=== PATIENT | female | born 1965 | race Caucasian/White ===

== ENCOUNTER 2022-09-09 05:48 | Outpatient (CLI) | payer OTHER, BC, SELFPAY | END 2022-09-09 05:49 | disposition home or self-care (01) | LOC: AMB 11:59 | PROVIDERS: Visit Provider Family Medicine | DX: R07.89 Other chest pain (principal); R06.09 Other forms of dyspnea | CPT/HCPCS: A0425; A0427 ==

== ENCOUNTER 2023-11-13 19:34 | Emergency (ER) | payer BC, SELFPAY ==
[2023-11-13 19:37] VITALS: BP 148/82; PULSE 111; RESP 24; TEMP 37.2; O2SAT 92; BMI 22.8
--- NOTE | 2023-11-13 19:50 | ED_ITS ---
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 with any exertion sats drop to low 80s and HR raises to 150s. concerned she may have an infection causing these symptoms. denies known fevers 58-year-old woman presenting to the emergency department with concern of shortness of breath. Her last night or during the night when she woke feeling like she had a band around her chest. Walking about the house, she went to get her inhaler noting oxygen saturations at 82%. Evidently initiated prednisone yesterday along with has been doing DuoNebs. Significant exercise intolerance with suppression of oxygen levels and tachycardia. She recalls in that 1st instance how heart rate went up and she became rather diaphoretic. She has not had a fever. No cough. Was noting herself to be wheezy should and shortly before arrival in the ER had used a neb. feels like she is doing okay at rest. Mentions also that both legs were really achy last night. Has not had swelling in particular. She does smoke cigarettes. 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 Following this surgery did develop an infection and sounds to have been pulmonary and since that time has needed various nebulizer treatments and inhalers. Initially she denies lung disease otherwise other than saying that she is prone to producing a lot of mucus in her lungs and no one knows exactly why. Does admit later that was thought to have a little bit of COPD. Related Data Home Medications Medication Instructions Recorded Confirmed albuterol sulfate 90 mcg/actuation 1 - 2 puff inhalation Q4H PRN 11/13/23 11/13/23 aerosol inhaler (Ventolin HFA) dyspnea azithromycin 250 mg tablet mg PO 11/13/23 fluticasone furoate 200 1 ea inhalation DAILY 11/13/23 11/13/23 mcg-vilanterol 25 mcg/dose inhalation powder (Breo Ellipta) hydrochlorothiazide 25 mg tablet 25 mg PO DAILY 11/13/23 11/13/23 ipratropium 0.5 mg-albuterol 3 mg 3 ml inhalation Q6H PRN cough 11/13/23 11/13/23 (2.5 mg base)/3 mL nebulization soln lansoprazole 30 mg capsule,delayed 30 mg PO BID 11/13/23 11/13/23 release methocarbamol 750 mg tablet 750 mg PO 3XD 11/13/23 11/13/23 prednisone 10 mg tablet 40 mg PO DAILY 11/13/23 11/13/23 tiotropium bromide 2.5 2 puff inhalation DAILY 11/13/23 11/13/23 mcg/actuation mist for inhalation (Spiriva Respimat) Previous Rx's Medication Instructions Recorded doxycycline monohydrate 100 mg 100 mg PO BID 9 days #18 caps 11/13/23 capsule Allergies Allergy/AdvReac Type Severity Reaction Status Date / Time Sulfa (Sulfonamide Allergy Verified 11/13/23 19:42 Antibiotics) Review of Systems Status of ROS: Reports: 6 or more systems reviewed and unremarkable except as noted in History and below [facility] Social History Smoking Status: Current every day smoker What tobacco products do you use: cigarettes Do you use any of these nicotine containing products: None Second hand tobacco smoke exposure: No How often do you have a drink containing alcohol: monthly or less AUDIT-C Alcohol total score: 1 Non-prescribed substance use: denies use service: No Exam Narrative: Exam Narrative: Pleasant. Talkative. Oropharynx is moist and hyperemic. Missing some dentition. No stridor. Does have breath sounds throughout and across the upper lung field sounds vaguely stridorous/harsh inhalations. No wheeze. There is no supraclavicular crepitus. Heart is in a tachycardic and regular rhythm. She is mildly labored at least in her inhalations. Does not seem to affect her talking. Extremities are well perfused and without edema. Const: Vital Signs, click to edit/add: Vital Signs - 24 hr 11/13/23 19:37 Temperature 98.9 F Pulse Rate [Pulse Oximeter] 111 H Respiratory Rate 24 Blood Pressure [Ri ght Upper Arm] 148/82 H Pulse Oximetry 92 Oxygen Delivery Me thod Room Air Documenting provider has reviewed patient's vital signs: yes Course Vital Signs Vital signs: Initial Vital Signs Temperature 98.9 F 11/13/23 19:37 Temperature Source Temporal Artery Scan 11/13/23 19:37 Pulse Rate 111 H 11/13/23 19:37 Respiratory Rate 24 11/13/23 19:37 Blood Pressure 148/82 H 11/13/23 19:37 Blood Pressure Mean 104 11/13/23 19:37 Blood Pressure Position Sitting 11/13/23 19:37 Pulse Oximetry 92 11/13/23 19:37 Oxygen Delivery Method Room Air 11/13/23 19:37 Vital Signs Temperature 98.9 F 11/13/23 19:37 Pulse Rate 111 H 11/13/23 19:37 Respiratory Rate 24 11/13/23 19:37 Blood Pressure 148/82 H 11/13/23 19:37 Pulse Oximetry 92 11/13/23 19:37 Oxygen Delivery Method Room Air 11/13/23 19:37 Temperature 98.9 F 11/13/23 19:37 Pulse Rate 111 H 11/13/23 19:37 Respiratory Rate 24 11/13/23 19:37 Blood Pressure 148/82 H 11/13/23 19:37 Pulse Oximetry 92 11/13/23 19:37 Oxygen Delivery Method Room Air 11/13/23 19:37 Medical Decision Making MDM Narrative Medical decision making narrative: I would suspect there is more COPD here than initially acknowledged. Would screen though for pulmonary embolus, pneumothorax particularly in light of history of surgery though breath sounds throughout, pneumonia. I do not think this is cardiac in origin but will check labs in this regard too. Monitor for tachyarrhythmia. Chest x-ray reviewed by me without pneumothorax, pulmonary effusion or infiltrate. Labs are reassuring and with normal D-dimer. Did request albuterol nebulization. My hope was to mobilize some secretions/mucous plugging. She noted marked improvement on reassessment though still expressing concern about potential infection and need for antibiotics. Thinks that something must be wrong with their old nebulizer at home as prior nebs had not resulted in symptomatic improvement like this. Maintaining oxygenation at 94-95% on room air which she notes to be approximately baseline. Tachycardia improved to the 80s. See patient discharge plan further discussion Lab Data Lab results reviewed: Yes I reviewed the patient's lab results Labs: Lab Results 11/13/23 11/13/23 11/13/23 Range/Units 19:50 20:30 20:30 WBC 9.22 (4.50-11.00) K/uL RBC 4.12 (4.00-5.20) m/uL Hgb 14.0 (12.0-16.0) gm/dL Hct 41.8 (33.0-51.0) % MCV 102 H (80-100) fL MCH 34 (26-34) pg MCHC 34 (32-36) gm/dL RDW Coeff of Breonna 12.9 (11.5-15.5) % Plt Count 247 (140-440) K/uL Neut % (Auto) 78.3 H (42.0-72.0) % Lymph % (Auto) 13.8 L (20-44) % [place] % (Auto) 7.0 (0.0-11.0) % Eos % (Auto) 0.5 (0.0-7.0) % Baso % (Auto) 0.3 (0.0-3.0) % Neut # (Auto) 7.20 H (1.7-7.0) K/uL Lymph # (Auto) 1.30 (0.90-2.90) K/uL [place] # (Auto) 0.60 (0.00-0.90) K/UL Eos # (Auto) 0.05 (0.00-0.50) K/uL Baso # (Auto) 0.03 (0.00-0.30) K/uL Abs Immat Gran (auto) 0.01 (0.00-0.30) K/uL Imm/Tot Granulo (auto) 0.1 % D-Dimer Quant (PE/DVT) 0.43 (0.00-0.50) ug/ml Sodium 141 (135-149) mmol/L Potassium 3.7 (3.6-5.1) mmol/L Chloride 108 (96-114) mmol/L Carbon Dioxide 28 (20-32) mmol/L Anion Gap 5 L (7-15) mEq/L BUN 27 (7-30) mg/dL Creatinine 0.9 (0.5-1.5) mg/dL Estimated Creat Clear 68.73 Estimated GFR 74 ml/min Glucose 127 H (60-115) mg/dL Calcium 9.7 (8.4-10.6) mg/dL Magnesium 1.6 Cancelled (1.5-2.6) mg/dL Total Bilirubin 0.2 (0.1-1.5) mg/dL Direct Bilirubin (0.0-0.5) mg/dL AST (12-35) U/L ALT (4-35) U/L Alkaline Phosphatase (40-150) U/L Troponin I (0.01-0.04) ng/mL C-Reactive Protein (0.5-1.0) mg/dL NT-Pro-B Natriuret Pep pg/mL Total Protein (6.0-8.3) g/dL Albumin (3.3-5.0) g/dL SARS-CoV-2 (PCR) Negative SARS-CoV-2 (Negative) Influenza Type A (PCR) Negative PCR FLU A (Negative) Influenza Type B (PCR) Negative PCR FLU B (Negative) RSV (PCR) Negative PCR RSV (Negative) POC Troponin I (0.01-0.04) ng/ml 11/13/23 11/13/23 11/13/23 Range/Units 20:30 20:30 20:30 WBC (4.50-11.00) K/uL RBC (4.00-5.20) m/uL Hgb (12.0-16.0) gm/dL Hct (33.0-51.0) % MCV (80-100) fL MCH (26-34) pg MCHC (32-36) gm/dL RDW Coeff of Breonna (11.5-15.5) % Plt Count (140-440) K/uL Neut % (Auto) (42.0-72.0) % Lymph % (Auto) (20-44) % [place] % (Auto) (0.0-11.0) % Eos % (Auto) (0.0-7.0) % Baso % (Auto) (0.0-3.0) % Neut # (Auto) (1.7-7.0) K/uL Lymph # (Auto) (0.90-2.90) K/uL [place] # (Auto) (0.00-0.90) K/UL Eos # (Auto) (0.00-0.50) K/uL Baso # (Auto) (0.00-0.30) K/uL Abs Immat Gran (auto) (0.00-0.30) K/uL Imm/Tot Granulo (auto) % D-Dimer Quant (PE/DVT) (0.00-0.50) ug/ml Sodium (135-149) mmol/L Potassium (3.6-5.1) mmol/L Chloride (96-114) mmol/L Carbon Dioxide (20-32) mmol/L Anion Gap (7-15) mEq/L BUN (7-30) mg/dL Creatinine (0.5-1.5) mg/dL Estimated Creat Clear Estimated GFR ml/min Glucose (60-115) mg/dL Calcium (8.4-10.6) mg/dL Magnesium (1.5-2.6) mg/dL Total Bilirubin Cancelled (0.1-1.5) mg/dL Direct Bilirubin 0.2 Cancelled (0.0-0.5) mg/dL AST 19 Cancelled (12-35) U/L ALT 13 (4-35) U/L Alkaline Phosphatase (40-150) U/L Troponin I (0.01-0.04) ng/mL C-Reactive Protein (0.5-1.0) mg/dL NT-Pro-B Natriuret Pep pg/mL Total Protein (6.0-8.3) g/dL Albumin (3.3-5.0) g/dL SARS-CoV-2 (PCR) (Negative) Influenza Type A (PCR) (Negative) Influenza Type B (PCR) (Negative) RSV (PCR) (Negative) POC Troponin I (0.01-0.04) ng/ml 11/13/23 11/13/23 11/13/23 Range/Units 20:30 20:30 20:30 WBC (4.50-11.00) K/uL RBC (4.00-5.20) m/uL Hgb (12.0-16.0) gm/dL Hct (33.0-51.0) % MCV (80-100) fL MCH (26-34) pg MCHC (32-36) gm/dL RDW Coeff of Breonna (11.5-15.5) % Plt Count (140-440) K/uL Neut % (Auto) (42.0-72.0) % Lymph % (Auto) (20-44) % [place] % (Auto) (0.0-11.0) % Eos % (Auto) (0.0-7.0) % Baso % (Auto) (0.0-3.0) % Neut # (Auto) (1.7-7.0) K/uL Lymph # (Auto) (0.90-2.90) K/uL [place] # (Auto) (0.00-0.90) K/UL Eos # (Auto) (0.00-0.50) K/uL Baso # (Auto) (0.00-0.30) K/uL Abs Immat Gran (auto) (0.00-0.30) K/uL Imm/Tot Granulo (auto) % D-Dimer Quant (PE/DVT) (0.00-0.50) ug/ml Sodium (135-149) mmol/L Potassium (3.6-5.1) mmol/L Chloride (96-114) mmol/L Carbon Dioxide (20-32) mmol/L Anion Gap (7-15) mEq/L BUN (7-30) mg/dL Creatinine (0.5-1.5) mg/dL Estimated Creat Clear Estimated GFR ml/min Glucose (60-115) mg/dL Calcium (8.4-10.6) mg/dL Magnesium (1.5-2.6) mg/dL Total Bilirubin (0.1-1.5) mg/dL Direct Bilirubin (0.0-0.5) mg/dL AST (12-35) U/L ALT Cancelled (4-35) U/L Alkaline Phosphatase 79 Cancelled (40-150) U/L Troponin I < 0.01 L Cancelled (0.01-0.04) ng/mL C-Reactive Protein 0.5 (0.5-1.0) mg/dL NT-Pro-B Natriuret Pep 130 pg/mL Total Protein (6.0-8.3) g/dL Albumin (3.3-5.0) g/dL SARS-CoV-2 (PCR) (Negative) Influenza Type A (PCR) (Negative) Influenza Type B (PCR) (Negative) RSV (PCR) (Negative) POC Troponin I (0.01-0.04) ng/ml 11/13/23 11/13/23 11/13/23 Range/Units 20:30 20:30 20:30 WBC (4.50-11.00) K/uL RBC (4.00-5.20) m/uL Hgb (12.0-16.0) gm/dL Hct (33.0-51.0) % MCV (80-100) fL MCH (26-34) pg MCHC (32-36) gm/dL RDW Coeff of Breonna (11.5-15.5) % Plt Count (140-440) K/uL Neut % (Auto) (42.0-72.0) % Lymph % (Auto) (20-44) % [place] % (Auto) (0.0-11.0) % Eos % (Auto) (0.0-7.0) % Baso % (Auto) (0.0-3.0) % Neut # (Auto) (1.7-7.0) K/uL Lymph # (Auto) (0.90-2.90) K/uL [place] # (Auto) (0.00-0.90) K/UL Eos # (Auto) (0.00-0.50) K/uL Baso # (Auto) (0.00-0.30) K/uL Abs Immat Gran (auto) (0.00-0.30) K/uL Imm/Tot Granulo (auto) % D-Dimer Quant (PE/DVT) (0.00-0.50) ug/ml Sodium (135-149) mmol/L Potassium (3.6-5.1) mmol/L Chloride (96-114) mmol/L Carbon Dioxide (20-32) mmol/L Anion Gap (7-15) mEq/L BUN (7-30) mg/dL Creatinine (0.5-1.5) mg/dL Estimated Creat Clear Estimated GFR ml/min Glucose (60-115) mg/dL Calcium (8.4-10.6) mg/dL Magnesium (1.5-2.6) mg/dL Total Bilirubin (0.1-1.5) mg/dL Direct Bilirubin (0.0-0.5) mg/dL AST (12-35) U/L ALT (4-35) U/L Alkaline Phosphatase (40-150) U/L Troponin I (0.01-0.04) ng/mL C-Reactive Protein (0.5-1.0) mg/dL NT-Pro-B Natriuret Pep Cancelled pg/mL Total Protein 7.5 Cancelled (6.0-8.3) g/dL Albumin 4.4 Cancelled (3.3-5.0) g/dL SARS-CoV-2 (PCR) (Negative) Influenza Type A (PCR) (Negative) Influenza Type B (PCR) (Negative) RSV (PCR) (Negative) POC Troponin I (0.01-0.04) ng/ml 11/13/23 Range/Units 20:45 WBC (4.50-11.00) K/uL RBC (4.00-5.20) m/uL Hgb (12.0-16.0) gm/dL Hct (33.0-51.0) % MCV (80-100) fL MCH (26-34) pg MCHC (32-36) gm/dL RDW Coeff of Breonna (11.5-15.5) % Plt Count (140-440) K/uL Neut % (Auto) (42.0-72.0) % Lymph % (Auto) (20-44) % [place] % (Auto) (0.0-11.0) % Eos % (Auto) (0.0-7.0) % Baso % (Auto) (0.0-3.0) % Neut # (Auto) (1.7-7.0) K/uL Lymph # (Auto) (0.90-2.90) K/uL [place] # (Auto) (0.00-0.90) K/UL Eos # (Auto) (0.00-0.50) K/uL Baso # (Auto) (0.00-0.30) K/uL Abs Immat Gran (auto) (0.00-0.30) K/uL Imm/Tot Granulo (auto) % D-Dimer Quant (PE/DVT) (0.00-0.50) ug/ml Sodium (135-149) mmol/L Potassium (3.6-5.1) mmol/L Chloride (96-114) mmol/L Carbon Dioxide (20-32) mmol/L Anion Gap (7-15) mEq/L BUN (7-30) mg/dL Creatinine (0.5-1.5) mg/dL Estimated Creat Clear Estimated GFR ml/min Glucose (60-115) mg/dL Calcium (8.4-10.6) mg/dL Magnesium (1.5-2.6) mg/dL Total Bilirubin (0.1-1.5) mg/dL Direct Bilirubin (0.0-0.5) mg/dL AST (12-35) U/L ALT (4-35) U/L Alkaline Phosphatase (40-150) U/L Troponin I (0.01-0.04) ng/mL C-Reactive Protein (0.5-1.0) mg/dL NT-Pro-B Natriuret Pep pg/mL Total Protein (6.0-8.3) g/dL Albumin (3.3-5.0) g/dL SARS-CoV-2 (PCR) (Negative) Influenza Type A (PCR) (Negative) Influenza Type B (PCR) (Negative) RSV (PCR) (Negative) POC Troponin I 0.00 L (0.01-0.04) ng/ml ECG Data Attestation: I personally reviewed and interpreted this ECG as follows: (Sinus tachycardia at a rate of 102. early transition) Discharge Plan Discharge Clinical Impression: COPD exacerbation Patient Disposition: Home w/ Parent or Adult Condition: Improved Additional Instructions: Given we are telling me, I am wondering if you have been experiencing some mucus plugging. Nebulizations can be helpful to mobilize that fluid. Stay well-hydrated. Take this nebulizer tubing and cup. You might try nebulizing distilled water as well. Over the next 3 days use your DuoNebs scheduled 4 times daily. Can use albuterol nebs or inhalers for breakthrough. Continue with your prednisone as well. If not turning the corner in a couple of days, or develop a fever, I would be seen but per your concern I have called in a prescription of doxycycline that you could fill. Included here also is a prescription for new nebulizer. Prescriptions: New doxycycline monohydrate 100 mg capsule 100 mg PO BID 9 Days Qty: 18 0RF No Action prednisone 10 mg tablet 40 mg PO DAILY ipratropium-albuterol 0.5 mg-3 mg(2.5 mg base)/3 mL solution for nebulization 3 ml INHALATION Q6H PRN (Reason: cough) azithromycin 250 mg tablet PO methocarbamol 750 mg tablet 750 mg PO 3XD lansoprazole 30 mg capsule,delayed release(DR/EC) 30 mg PO BID hydrochlorothiazide 25 mg tablet 25 mg PO DAILY albuterol sulfate [Ventolin HFA] 90 mcg/actuation HFA aerosol inhaler 1 - 2 puff INHALATION Q4H PRN (Reason: dyspnea) fluticasone furoate-vilanterol [Breo Ellipta] 200-25 mcg/dose blister with device 1 ea INHALATION DAILY Spiriva Respimat 2.5 mcg/actuation mist 2 puff INHALATION DAILY Follow Up/Referrals: Provider,Not a Local [Primary Care Provider] - Stand Alone [facility]: [facility]
--- NOTE | 2023-11-13 20:04 | XR_ITS ---
Patient: NUSRAT SANTANA Facility:?[facility] Patient ID:?[id number] Site Patient ID:?[id number] Site :?[id number] Study:?XRay-Chest PCXR-11/13/2023 8:35:39 PM Ordering Physician:SONALI Final Report: INDICATION: CHEST PRESSURE, HYPOXIA CHEST, ONE VIEW An AP radiograph of the chest was performed. Comparison: No previous studies are currently available for comparison. The lungs appear clear and no pleural effusions are identified. The cardiomediastinal silhouette and pulmonary vasculature appear normal, as do the visualized bones. IMPRESSION: No acute intrathoracic abnormality identified. KRYSTYNA PENA MD [employer] Dictated by: Alon Pena MD @ 11/13/2023 20:56:05 Signed by:Sebastien Pena MD @11/13/2023 8:56:05 PM (Electronic Signature)
[2023-11-13 20:31] LABS: PCR FLU A Negative PCR FLU A (Negative); PCR FLU B Negative PCR FLU B (Negative); PCR RSV Negative PCR RSV (Negative); SARS PCR* Negative SARS-CoV-2 (Negative)
[2023-11-13 20:40] LABS: Basophils Absolute Auto 0.03 K/uL (0.00-0.30); Basophils Percent Auto 0.3 % (0.0-3.0); Eosinophils Absolute Auto 0.05 K/uL (0.00-0.50); Eosinophils Percent Auto 0.5 % (0.0-7.0); Hematocrit 41.8 % (33.0-51.0); Immature Granulocytes Abs Auto 0.01 K/uL (0.00-0.30); Immature Granulocytes Pct Auto 0.1 %; Lymphocytes Percent Auto 13.8 % (20-44); Mean Corpuscular HGB Conc 34 gm/dL (32-36); Mean Corpuscular Hemoglobin 34 pg (26-34); Mean Corpuscular Volume 102 fL (80-100); Neutrophils Percent Auto 78.3 % (42.0-72.0); Platelet Count* 247 K/uL (140-440); RDW Coefficient of Variation % 12.9 % (11.5-15.5); Red Blood Count 4.12 m/uL (4.00-5.20); White Blood Count* 9.22 K/uL (4.50-11.00)
[2023-11-13 20:46] LABS: Slide Review Reflex No
[2023-11-13 20:52] LABS: Albumin* 4.4 g/dL (3.3-5.0); Chloride* 108 mmol/L (96-114)
[2023-11-13 20:53] LABS: Potassium* 3.7 mmol/L (3.6-5.1); Sodium* 141 mmol/L (135-149)
[2023-11-13 20:55] LABS: Creatinine* 0.9 mg/dL (0.5-1.5); Est. Creatinine Clearance* 68.73; Estimated Glomerular Filt Rate 74 ml/min
[2023-11-13 20:56] LABS: Alanine Aminotransferase* 13 U/L (4-35); Alkaline Phosphatase* 79 U/L (40-150); Anion Gap 5 mEq/L (7-15); Aspartate Amino Transferase* 19 U/L (12-35); Bilirubin Direct* 0.2 mg/dL (0.0-0.5); Bilirubin Total* 0.2 mg/dL (0.1-1.5); Blood Urea Nitrogen* 27 mg/dL (7-30); Calcium* 9.7 mg/dL (8.4-10.6); Carbon Dioxide* 28 mmol/L (20-32); Glucose* 127 mg/dL (60-115); Total Protein* 7.5 g/dL (6.0-8.3)
[2023-11-13 20:57] LABS: D Dimer Quantitative* 0.43 ug/ml (0.00-0.50); Magnesium* 1.6 mg/dL (1.5-2.6)
[2023-11-13 20:59] LABS: C Reactive Protein* 0.5 mg/dL (0.5-1.0)
[2023-11-13 21:10] LABS: NT Pro B Type NatriureticPept* 130 pg/mL; Troponin I* < 0.01 ng/mL (0.01-0.04)
--- NOTE | 2023-11-13 22:09 | PC.NURSE ---
pt states she wouldl like antibiotics for whatever I have.
== END 2023-11-13 23:35 | disposition home or self-care (01) ==
PROVIDERS: Emergency Provider Family Medicine
DX: J44.1 Chronic obstructive pulmonary disease with (acute) exacerbation (principal)
CPT/HCPCS: 36415; 71045; 71275; 80048; 80076; 82803; 83605; 83690; 83735; 83880; 84145; 84484; 85025; 85379; 86140; 87040; 87631; 93005; 94640; 94761; 96365; 96375; 99284; 99285; A9270; J0696; J2919; J7030; Q9967; S4990

== ENCOUNTER 2023-11-16 13:43 | Inpatient (IN) | payer BC, SELFPAY ==
[2023-11-16] VITALS (8 sets, daily range): BP systolic 114–140; BP diastolic 76–106; PULSE 86–104; RESP 18–27; TEMP 36.6–37.1; O2SAT 91–93; BMI 22.8
--- NOTE | 2023-11-16 14:10 | ED.GENADULT ---
HPI - General Adult General Date Seen: 11/16/23 Chief complaint: Chest Pain Stated complaint: Chest pain, diff breathing Time Seen by Provider: 11/16/23 13:57 History of Present Illness HPI narrative: 58-year-old female presents to the ER this afternoon for evaluation chest pain. 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 She says that she only had signs of mild emphysema on her CT scan. She is chronically managed on Spiriva, Breo. She uses burst of prednisone which she gets a flare. When she flare she needs to use her DuoNeb 4 times daily and her rescue Flovent inhaler every 2 hours as needed. She does not have a spacer. She also has a history of multiple pulmonary nodules. She apparently had a large right upper lobe nodule found on imaging a couple of years ago. It was enhancing on PET-CT scan so she actually had a resection of a right upper lobe. Fortunately, it turns out that the nodule/mass was not cancerous. Apparently it was an infection? She has hypertension and dyslipidemia. She has also had an episode of chest pain a couple of years ago his that led to an ER visit. It sounds like her cardiac workup was negative but she never had a stress test or a angiogram. She does have a strong multiple risk factors for coronary disease. She is a tobacco user, she has high blood pressure, she has high cholesterol , she has a strong family history of coronary disease. Two brothers have of coronary disease in their 50s. She has a history of GERD (on lansoprazole). She began to feel shortness of breath and chest tightness about 4-5 days ago. She started using her nebulizers and rescue inhaler. She actually started herself on a burst of prednisone on November 11 for shortness of breath. Records indicate that she was seen here in the ER 3 days ago on 11/12. Chest x-ray was read as clear. D-dimer was normal. 0.43. WBC 9.2, hemoglobin 14, platelet count 247. Sodium 141, potassium 3.7, BUN 27, creatinine 0.9. Glucose 127. She received albuterol nebulizers an improved. She was discharged home with doxycycline 100 mg b.i.d.. Since then she has been getting worse. In particular overnight she woke up with profound shortness of breath. She used her pulse oximeter and told her her oxygen sat was 79% and her heart rate was 167. She gave herself nebs and inhalers. She has been feeling short of breath, in particular with any exertion, since then. She has also had nausea and a sensation of needing to have diarrhea, but has not actually had any stools. She does not have a fever. She has also been having bilateral chest tightness and discomfort all day long since she woke up this morning. It is worse than the past few days. No swelling in her legs. No recent travel. Related Data Home Medications Medication Instructions Recorded Confirmed albuterol sulfate 90 mcg/actuation 1 - 2 puff inhalation Q4H PRN 11/13/23 11/13/23 aerosol inhaler (Ventolin HFA) dyspnea azithromycin 250 mg tablet mg PO 11/13/23 fluticasone furoate 200 1 ea inhalation DAILY 11/13/23 11/13/23 mcg-vilanterol 25 mcg/dose inhalation powder (Breo Ellipta) hydrochlorothiazide 25 mg tablet 25 mg PO DAILY 11/13/23 11/13/23 ipratropium 0.5 mg-albuterol 3 mg 3 ml inhalation Q6H PRN cough 11/13/23 11/13/23 (2.5 mg base)/3 mL nebulization soln lansoprazole 30 mg capsule,delayed 30 mg PO BID 11/13/23 11/13/23 release methocarbamol 750 mg tablet 750 mg PO 3XD 11/13/23 11/13/23 prednisone 10 mg tablet 40 mg PO DAILY 11/13/23 11/13/23 tiotropium bromide 2.5 2 puff inhalation DAILY 11/13/23 11/13/23 mcg/actuation mist for inhalation (Spiriva Respimat) Previous Rx's Medication Instructions Recorded doxycycline monohydrate 100 mg 100 mg PO BID 9 days #18 caps 11/13/23 capsule Allergies Allergy/AdvReac Type Severity Reaction Status Date / Time Sulfa (Sulfonamide Allergy Verified 11/16/23 15:48 Antibiotics) [facility] Social History Smoking Status: Current every day smoker What tobacco products do you use: cigarettes Do you use any of these nicotine containing products: None Second hand tobacco smoke exposure: No How often do you have a drink containing alcohol: monthly or less AUDIT-C Alcohol total score: 1 Non-prescribed substance use: denies use service: No Exam Narrative: Exam Narrative: Constitutional: Appears well-developed and well-nourished. Alert. Conversant but uncomfortable and somewhat worried. Her son is attentively at her side.. Non toxic. HENT: Head: Atraumatic. Nose: Nose normal. Mouth/Throat: Oral mucosa is clear and moist. no trismus. Pharynx normal. Tonsils symmetric. No tonsillar enlargement, erythema, or exudate. Eyes: Conjunctivae normal. EOM normal. Pupils equal, round, and reactive to light. No scleral icterus. Neck: Normal range of motion. Neck supple. No tracheal deviation present. No JVD Cardiovascular: Normal rate, regular rhythm. No gallop. No friction rub. No murmur heard. Symmetric radial and PT artery pulses Pulmonary/Chest: Effort normal. No stridor. No respiratory distress. Oxygen sat 90-92% on room air. Heart rate in the 90s. She has a few scattered wheezes in both upper lung moreno. More diminished on the right (possibly from previous lung resection? ). Right lower lobe rales suspicious for an infiltrate or pleural effusion. Abdominal: Soft.No distension. No mass. No tenderness. No rebound. No guarding. Musculoskeletal: RUE: Normal range of motion. No tenderness. No deformity LUE: Normal range of motion. No tenderness. No deformity RLE: Normal range of motion. No edema. No tenderness. No deformity LLE: Normal range of motion. No edema. No tenderness. No deformity Lymph: No cervical adenopathy. Neurological: Alert and oriented to person, place, and time. Normal strength. CN II-VII intact. No sensory deficit. GCS eye subscore is 4. GCS verbal subscore is 5. GCS motor subscore is 6. Normal coordination Skin: Skin is warm and dry. No rash noted. No pallor. Normal capillary refill. Psychiatric: Normal mood. Normal affect. Const: Vital Signs, click to edit/add: Vital Signs - 24 hr 11/16/23 13:48 Temperature 98.4 F Pulse Rate [Right Femoral] 104 H Respiratory Rate 20 Blood Pressure [Ri ght Upper Arm] 140/84 H Pulse Oximetry 92 Oxygen Delivery Me thod Room Air Course Course ED Course: Recheck-back room CT. I hooked her back up to heart and pulse oximeter monitors. She has sinus in the 80s. Oxygen 88% room air-I placed onto it is nasal cannula and sats came up to 93%. Reevaluation(s) Reevaluation #1: Discussed with hospitalist, Dr. Campuzano. She accepts for admission. She requests that we add on CRP, procalcitonin, VBG, and urine strep and Legionella antigens. Vital Signs Vital signs: Initial Vital Signs Temperature 98.4 F 11/16/23 13:48 Temperature Source Temporal Artery Scan 11/16/23 13:48 Pulse Rate 104 H 11/16/23 13:48 Respiratory Rate 20 11/16/23 13:48 Blood Pressure 140/84 H 11/16/23 13:48 Blood Pressure Mean 102 11/16/23 13:48 Blood Pressure Position Sitting 11/16/23 13:48 Pulse Oximetry 92 11/16/23 13:48 Oxygen Delivery Method Room Air 11/16/23 13:48 Vital Signs Temperature 98.4 F 11/16/23 13:48 Pulse Rate 104 H 11/16/23 13:48 Respiratory Rate 20 11/16/23 13:48 Blood Pressure 140/84 H 11/16/23 13:48 Pulse Oximetry 92 11/16/23 13:48 Oxygen Delivery Method Room Air 11/16/23 13:48 Temperature 98.4 F 11/16/23 13:48 Pulse Rate 104 H 11/16/23 13:48 Respiratory Rate 20 11/16/23 13:48 Blood Pressure 140/84 H 11/16/23 13:48 Pulse Oximetry 92 11/16/23 13:48 Oxygen Delivery Method Room Air 11/16/23 13:48 Medical Decision Making MDM Narrative Medical decision making narrative: This patient presents to the ER today for evaluation of chest pain, shortness of breath, elevated heart rate. She also measured low oxygen sats paretic we at home.. Differential was broad. No evidence of palpitations, syncope or other cardiac dysrhythmia while she is here in the ER but she did report a heart rate up to 167 at home. Unclear if this is an accurate reading because it was measured by her pulse oximeter. She does have wheezing and a long history of COPD. Treated with DuoNebs here in the ER. Also IV Solu-Medrol. At this point she is hypoxic to 88% on room air but 93% on 2 L. He mental status is normal and she is not having respiratory distress requiring BiPAP. Chest CT is negative for any obvious focal pneumonia. Will add on serum procalcitonin and CRP. Hospitalist also requests Legionella and strep pneumo antigens which have been ordered. We considered possible ACS, however workup with EKG and troponin is negative. HEART score is 5, and she has multiple risk factors. Fortunately troponin is negative.. Given time since onset of symptoms, I do not think the patient needs to be admitted for further sets of enzymes. EKG shows no evidence for pericarditis. Clinical presentation not suggestive of myocarditis. Chest x-ray shows no evidence for pneumonia, pneumothorax, pulmonary edema, pleural effusion, rib fracture, cardiomegaly. Mediastinum is normal on the x-ray. The patient has no ripping or tearing pain through to the back and has symmetric pulses on exam, no other acute neuro findings so I doubt aortic dissection. Risk of radiation and contrast exposure would outweigh the benefit of CT angiogram. We considered PE for this patient. CT PE a is negative for PE. It does show pulmonary nodules. Patient was previously aware of these and will follow-up for 6 month follow-up CT scan. No signs of chest wall cellulitis, shingles, injury. Lab Data Labs: Lab Results 11/16/23 Range/Units 15:10 WBC 7.25 (4.50-11.00) K/uL RBC 4.68 (4.00-5.20) m/uL Hgb 15.8 (12.0-16.0) gm/dL Hct 47.1 (33.0-51.0) % MCV 101 H (80-100) fL MCH 34 (26-34) pg MCHC 34 (32-36) gm/dL RDW Coeff of Breonna 12.8 (11.5-15.5) % Plt Count 265 (140-440) K/uL Neut % (Auto) 55.9 (42.0-72.0) % Lymph % (Auto) 33.8 (20-44) % [place] % (Auto) 6.9 (0.0-11.0) % Eos % (Auto) 2.5 (0.0-7.0) % Baso % (Auto) 0.6 (0.0-3.0) % Neut # (Auto) 4.06 (1.7-7.0) K/uL Lymph # (Auto) 2.45 (0.90-2.90) K/uL [place] # (Auto) 0.50 (0.00-0.90) K/UL Eos # (Auto) 0.18 (0.00-0.50) K/uL Baso # (Auto) 0.04 (0.00-0.30) K/uL Abs Immat Gran (auto) 0.02 (0.00-0.30) K/uL Imm/Tot Granulo (auto) 0.3 % VBG pH 7.403 (7.32-7.43) VBG pCO2 50 (40-50) mmHG VBG pO2 (25-47) mmHG VBG HCO3 31 H (21-28) mmol/L Sodium 140 (135-149) mmol/L Potassium 3.2 L (3.6-5.1) mmol/L Chloride 104 (96-114) mmol/L Carbon Dioxide 28 (20-32) mmol/L Anion Gap 8 (7-15) mEq/L BUN 24 (7-30) mg/dL Creatinine 0.8 (0.5-1.5) mg/dL Estimated Creat Clear 77.32 Estimated GFR 85 ml/min Glucose 89 (60-115) mg/dL Lactate 1.2 (0.5-1.9) mmol/L Calcium 10.1 (8.4-10.6) mg/dL Troponin I < 0.01 L (0.01-0.04) ng/mL C-Reactive Protein < 0.5 L (0.5-1.0) mg/dL NT-Pro-B Natriuret Pep 145 pg/mL Lipase 56 (23-300) U/L ECG Data Attestation: I personally reviewed and interpreted this ECG as follows: Interpretation: Normal sinus rhythm Rate: Rate 98 NE: 120 QRS axis: Normal axis. No pathologic Q-waves. ST segment/T wave: No ST segment elevation or depression. QTc: 444 Discharge Plan Discharge Clinical Impression: COPD exacerbation, Chest pain Prescriptions: No Action prednisone 10 mg tablet 40 mg PO DAILY ipratropium-albuterol 0.5 mg-3 mg(2.5 mg base)/3 mL solution for nebulization 3 ml INHALATION Q6H PRN (Reason: cough) azithromycin 250 mg tablet PO methocarbamol 750 mg tablet 750 mg PO 3XD lansoprazole 30 mg capsule,delayed release(DR/EC) 30 mg PO BID hydrochlorothiazide 25 mg tablet 25 mg PO DAILY albuterol sulfate [Ventolin HFA] 90 mcg/actuation HFA aerosol inhaler 1 - 2 puff INHALATION Q4H PRN (Reason: dyspnea) fluticasone furoate-vilanterol [Breo Ellipta] 200-25 mcg/dose blister with device 1 ea INHALATION DAILY Spiriva Respimat 2.5 mcg/actuation mist 2 puff INHALATION DAILY doxycycline monohydrate 100 mg capsule 100 mg PO BID 9 Days Qty: 18 0RF Follow Up/Referrals: Provider,Not a Local [Primary Care Provider] -
--- NOTE | 2023-11-16 14:32 | CT_ITS ---
[place] Facility:[facility] Patient ID:?[id number] Site Patient ID:?[id number]. Site :?[id number] Study:?CT-Chest PE 95CC ISOVUE 370-11/16/2023 3:45:54 PM Ordering Physician:FRAN Final Report: INDICATION: Chest pain, dyspnea and hypoxia. COMPARISON: None available. TECHNIQUE: CT pulmonary angiography with 95 cc of Isovue 370 intravenous contrast. Please note that all CT scans at this facility use dose modulation, iterative reconstruction, and/or weight-based dosing when appropriate to reduce radiation dose to as low as reasonably achievable. FINDINGS: Pulmonary Arterial Vasculature: Opacification of the pulmonary arterial tree is adequate. No intraluminal pulmonary arterial filling defect is identified to indicate a pulmonary embolism. Visualized Lower Neck: No lower cervical adenopathy. Mediastinum: Thoracic aorta and pulmonary trunk are normal in caliber. Left ventricular enlargement and hypertrophy. Trachea and esophagus are normal in appearance. There is no mediastinal lymphadenopathy. Lungs and Pleura: Clustered secondary pulmonary lobular consolidation in the posterior aspect of the left upper lobe (series 6; images 33-42). These have the appearance of nodular opacities, the largest of which measures 7 mm in mean diameter (6; 33). Follow-up CT is recommended in 6 months. Asymmetrical left upper lobe interlobular smooth septal thickening. Bilateral upper lung predominant symmetrical mild emphysema. Bilateral lower lobe subsegmental bronchial wall thickening consistent with nonspecific small airways disease. Bilateral pleural-based band opacities consistent with nonspecific minor fibrosis. No significant pleural effusion. No pneumothorax. Skeleton: No significant osseous findings. Thoracic soft tissues: Unremarkable. No axillary adenopathy. Visualized Upper Abdomen: No significant findings. IMPRESSION: 1. No evidence of pulmonary embolism. 2. Patchy left upper lobe secondary pulmonary lobule consolidation consistent with nonspecific pneumonitis. As discussed above, these findings could be interpreted as nodules, the largest of which measures 7 mm in mean diameter. A 6 month follow-up CT is therefore recommended. 3. Nonspecific left upper lobe smooth interlobular septal thickening. 4. Mild emphysema. 5. Left ventricular enlargement and hypertrophy. RECOMMENDATION: 6 MONTH FOLLOW-UP CHEST CT. Please note that all CT scans at this facility use dose modulation, iterative reconstruction, and/or weight-based dosing when appropriate to reduce radiation dose to as low as reasonably achievable. Dictated by Mariano Pinzon MD @ 11/16/2023 4:00:17 PM Signed by:?Mariano Pinzon MD @11/16/2023 4:00:17 PM (Electronic Signature
[2023-11-16] MEDS: 0.9 % SODIUM CHLORIDE 1000 ml 1,000 ML IV (15:00)
[2023-11-16 15:11] LABS: Lactate* 1.2 mmol/L (0.5-1.9)
[2023-11-16 15:14] LABS: Basophils Absolute Auto 0.04 K/uL (0.00-0.30); Basophils Percent Auto 0.6 % (0.0-3.0); Eosinophils Absolute Auto 0.18 K/uL (0.00-0.50); Eosinophils Percent Auto 2.5 % (0.0-7.0); Hematocrit 47.1 % (33.0-51.0); Hemoglobin* 15.8 gm/dL (12.0-16.0); Immature Granulocytes Abs Auto 0.02 K/uL (0.00-0.30); Immature Granulocytes Pct Auto 0.3 %; Lymphocytes Absolute Auto 2.45 K/uL (0.90-2.90); Lymphocytes Percent Auto 33.8 % (20-44); Mean Corpuscular HGB Conc 34 gm/dL (32-36); Mean Corpuscular Hemoglobin 34 pg (26-34); Mean Corpuscular Volume 101 fL (80-100); Monocytes Percent Auto 6.9 % (0.0-11.0); Neutrophils Absolute Auto 4.06 K/uL (1.7-7.0); Neutrophils Percent Auto 55.9 % (42.0-72.0); Platelet Count* 265 K/uL (140-440); RDW Coefficient of Variation % 12.8 % (11.5-15.5); Red Blood Count 4.68 m/uL (4.00-5.20); White Blood Count* 7.25 K/uL (4.50-11.00)
[2023-11-16 15:28] LABS: Chloride* 104 mmol/L (96-114); Potassium* 3.2 mmol/L (3.6-5.1); Sodium* 140 mmol/L (135-149)
[2023-11-16 15:30] LABS: Creatinine* 0.8 mg/dL (0.5-1.5); Est. Creatinine Clearance* 77.32; Estimated Glomerular Filt Rate 85 ml/min; Lipase* 56 U/L (23-300)
[2023-11-16 15:31] LABS: Anion Gap 8 mEq/L (7-15); Blood Urea Nitrogen* 24 mg/dL (7-30); Calcium* 10.1 mg/dL (8.4-10.6); Carbon Dioxide* 28 mmol/L (20-32); Glucose* 89 mg/dL (60-115)
[2023-11-16 15:41] LABS: Slide Review Reflex No
[2023-11-16 15:43] LABS: NT Pro B Type NatriureticPept* 145 pg/mL; Troponin I* < 0.01 ng/mL (0.01-0.04)
[2023-11-16 16:52] LABS: HCO3 VBG 31 mmol/L (21-28); PCO2 VBG 50 mmHG (40-50); pH VBG 7.403 (7.32-7.43)
[2023-11-16 16:53] LABS: C Reactive Protein* < 0.5 mg/dL (0.5-1.0)
[2023-11-16 16:59] LABS: Procalcitonin* 0.04 ng/mL (<0.50)
--- NOTE | 2023-11-16 16:59 | P.IMHP_ITS ---
Hospitalist- H&P: HPI History of Present Illness Date Seen: 11/16/23 Chief complaint: Chest pain, diff breathing Narrative: ADMISSION HISTORY AND PHYSICAL - HOSPITALIST Chief Complaint: COPD exacerbation HPI: 58-year-old with moderately severe COPD followed by pulmonary and continues to smoke presents with increasing dyspnea and work of breathing. She states her symptoms started approximately 6 days prior to admission. She has a home start regimen that includes prednisone 40 mg daily. She started this on 11/11. On 11/12 she presented to our emergency room. She was told to finish her prednisone and start doxycycline. She did this but today, 11/15, she came in with increasing work of breathing and mildly hypoxic. No new fever. However she states for the last few weeks her mucous, especially in the morning, has increased. No travel or sick contacts. No chest pain or p alpitations. She continues to work full-time. She smokes at least 3-5 cigarettes a day sometimes up to 10 depending on her stress level. She lives at home with her and her adult son. ER COURSE: IV steroids. Labs. Imaging. CODE STATUS: FULL CODE EMERGENCY CONTACT PLAN: David Dan? Son?Rel to [facility]? [phone]?Cell Phone? I've updated the PFSH, medications and allergies in the Expanse tabs. INVESTIGATIONS: LABS/MICRO/ECG/IMAGING CBC is reassuring. MCV is slightly elevated at 101. D-dimer normal. PH is normal. PCO2 is 50. Potassium is mildly low at 3.2, otherwise her electrolytes and renal function are normal. Troponin undetectable. CRP undetectable. BNP normal. Procal normal. Respiratory swab negative 3 days prior to arrival. CTA IMPRESSION: 1. No evidence of pulmonary embolism. 2. Patchy left upper lobe secondary pulmonary lobule consolidation consistent with nonspecific pneumonitis. As discussed above, these findings could be interpreted as nodules, the largest of which measures 7 mm in mean diameter. A 6 month follow-up CT is therefore recommended. 3. Nonspecific left upper lobe smooth interlobular septal thickening. 4. Mild emphysema. 5. Left ventricular enlargement and hypertrophy. RECOMMENDATION: 6 MONTH FOLLOW-UP CHEST CT. EKG is NSR. REVIEW OF SYSTEMS: 12-point ROS completed with patient and negative unless otherwise stated in HPI or below. PHYSICAL EXAM: CONSTITUTIONAL: Coughing. mild dyspnea with conversation. NAD. VITAL SIGNS: see record. HEENT: Normocephalic, atraumatic. PERRL, EOMI, conjunctivae pink, no scleral icterus. Ears and nose externally normal. Pharynx normal. NECK: No JVD. No carotid bruit, no thyromegaly, no adenopathy. CHEST: wheezing throughout. HEART: S1 and S2 normal. No harsh murmurs. Edema MUSCULOSKELETAL: No gross joint deformity or swelling. NEURO: Cranial nerves intact. Grossly intact. No asymmetric findings. SKIN: No rashes, petechiae, concerning changes PSYCHIATRIC: Euthymic. ADMIT TO MEDSURG: FLOOR CARE DVT: Lovenox GI: PO intake Time spent: Today I spent 75 minutes seeing the patient, discussing the patient with ER staff, reviewing Expanse and EPIC notes/diagnostics, discussing the care plan with our care time that includes social work, PT/OT, pharmacy, RT, fpc and documenting my impressions and plan in the medical record. 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 without renal involvement (ICD-10) Smoker ?F17.200 - Nicotine dependence, unspecified, uncomplicated (ICD-10) Surgical History (Updated 11/16/23 @ 19:04 by Angeline Campuzano MD) H/O sinus surgery ?Z98.890 - Other specified postprocedural states (ICD-10) S/P lobectomy of lung ?Z90.2 - Acquired absence of lung [part of] (ICD-10) Social History What is your current living situation?: I presently have a place to live Problems where you live: no known problems Problems where you live details: NA In the past 12 months, utilities in danger of being shut off: no In past 12 months, lack of transportation kept you from medical appts, meetings, work, or getting things needed for daily living: no In the past 12 mos, have been you worried that your food would run out before you had money to buy more?: never true In the past 12 mos, the food you bought just didn't last and you didn't have money to buy more?: never true Smoking Status: Current every day smoker What tobacco products do you use: cigarettes Smoking packs per day: 1 Smoking cigarettes per day: 20.0 Years smoked: 20 Smoking pack-years: 20.00 Do you use any of these nicotine containing products: None Second hand tobacco smoke exposure: No How often do you have a drink containing alcohol: monthly or less How many standard drinks containing alcohol do you have on a typical day: 1 or 2 How often do you have six or more drinks on one occasion: Never AUDIT-C Alcohol total score: 1 Non-prescribed substance use: denies use Caffeine: Yes (soda, coffee) How often does anyone, including family, friends and others, physically hurt you : never How often does anyone, including family, friends and others, insult or talk down to you: never How often does anyone, including family, friends and others, threaten you with harm: never How often does anyone, including family, friends and others, scream or curse at you: never service: No Meds Home Medications and Allergies Home Medications Medication Instructions Recorded Confirmed Type albuterol sulfate 90 mcg/actuation 1 - 2 puff inhalation Q4H PRN 11/13/23 11/16/23 History aerosol inhaler (Ventolin HFA) dyspnea azithromycin 250 mg tablet 250 mg PO Q48H 11/13/23 11/16/23 History fluticasone furoate 200 1 ea inhalation DAILY 11/13/23 11/16/23 History mcg-vilanterol 25 mcg/dose inhalation powder (Breo Ellipta) hydrochlorothiazide 25 mg tablet 25 mg PO DAILY 11/13/23 11/16/23 History ipratropium 0.5 mg-albuterol 3 mg 3 ml inhalation Q6H PRN cough 11/13/23 11/16/23 History (2.5 mg base)/3 mL nebulization soln lansoprazole 30 mg capsule,delayed 30 mg PO BID 11/13/23 11/16/23 History release methocarbamol 750 mg tablet 750 mg PO TID PRN 11/13/23 11/16/23 History tiotropium bromide 2.5 2 puff inhalation DAILY 11/13/23 11/16/23 History mcg/actuation mist for inhalation (Spiriva Respimat) hydroxyzine pamoate 25 mg capsule 25 - 50 mg PO HS PRN 11/16/23 11/16/23 History naproxen 500 mg tablet 500 mg PO BID PRN 11/16/23 11/16/23 History rosuvastatin 10 mg tablet 10 mg PO QPM 11/16/23 11/16/23 History sennosides 8.6 mg-docusate sodium 1 tab-cap PO BID PRN 11/16/23 11/16/23 History 50 mg tablet (Colace 2-In-1) Allergies Allergy/AdvReac Type Severity Reaction Status Date / Time Sulfa (Sulfonamide Allergy Verified 11/16/23 15:48 Antibiotics) Exam Const: Vital Signs, click to edit/add: Vital Signs - 24 hr 11/16/23 13:48 Temperature 98.4 F Pulse Rate [Right Femoral] 104 H Respiratory Rate 20 Blood Pressure [Ri ght Upper Arm] 140/84 H Pulse Oximetry 92 Oxygen Delivery Me thod Room Air Hospitalist - H&P: Result Labs Labs: Short CBC 11/16/23 Range/Units 15:10 WBC 7.25 (4.50-11.00) K/uL Hgb 15.8 (12.0-16.0) gm/dL Hct 47.1 (33.0-51.0) % Plt Count 265 (140-440) K/uL BMP 11/16/23 15:10 Sodium 140 Potassium 3.2 L Chloride 104 Carbon Dioxide 28 BUN 24 Creatinine 0.8 Glucose 89 Calcium 10.1 Cardiac Enzymes 11/16/23 Range/Units 15:10 Troponin I < 0.01 L (0.01-0.04) ng/mL Assessment and Plan Assessment and plan (1) COPD exacerbation: Problem comment: -Doxy and Prednisone were started as an outpatient - she failed these -Ceftriaxone, Azithro to cover for bacterial component (patchy left upper lobe on CTA) -Solu-medrol, nebs (scheduled and prn), mucinex, RT/RN for aerobika and ISP -BC pending, will order sputum cultures and legionella and strep pneumo -Covid negative on 11/12 - will screen again -CTA reviewed Status: Acute (2) Severe chronic obstructive pulmonary disease: Problem comment: Followed by Neema Garcia MD ([facility]) but needs new PCP/New specialist as insurance has changed Breo, Spiriva, albuterol daily. 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 Azithro QOD. mass was PET positive and resection was recommended. All infection/no malignancy. Status: Acute (4) Acute hypokalemia: Problem comment: single dose PO replacement. Trend. Status: Acute (5) LVH (left ventricular hypertrophy): Problem comment: Noted on CTA EKG is reassuring Echo ordered Status: Acute (6) Lung nodule: Problem comment: MARIANO, 7mm on our CTA (no comparison available to tele-RAD) However, CT lung screening just done in September was negative. She is high risk. Recommend she meet with new PCP and new behavioral sciences instructor who can review previous imaging and this admissions CTA for further cares. Status: Acute (7) GERD (gastroesophageal reflux disease): Status: Acute (8) Rhinitis: Status: Acute (9) Smoker: Problem comment: -nicotine patch and gum/lozenge ordered Status: Acute
[2023-11-16] MEDS: METHYLPREDNISOLONE SOD SUCC 62.5 MG/ML (125) 125 MG IVP ×2 (17:45→23:37)
[2023-11-16] MEDS: IPRAT-ALBUT 0.5-2.5 MG/3 ML NEB 1 NEB IH ×2 (18:53→23:36)
[2023-11-16] MEDS: NICOTINE 7 MG PATCH 1 PATCH TRANSDERMA (18:57)
[2023-11-16] MEDS: cefTRIAXone 2 GM in 0.9 % SODIUM CHLORIDE Mini-bag 100 ML IVPB (18:58)
[2023-11-16] MEDS: POTASSIUM CHLORIDE 10 MEQ CAPSULE ER 40 MEQ PO (20:14)
[2023-11-16] MEDS: guaiFENesin 600 MG TAB.ER.12H 1200 MG PO (20:14)
[2023-11-16] MEDS: AZITHROMYCIN 250 MG TABLET 500 MG PO (20:14)
[2023-11-16 21:07] LABS: PCR FLU A Negative PCR FLU A (Negative); PCR FLU B Negative PCR FLU B (Negative); PCR RSV Negative PCR RSV (Negative); SARS PCR* Negative SARS-CoV-2 (Negative)
[2023-11-16] MEDS: OMEPRAZOLE 20 MG CAPSULE DR 40 MG PO (23:36)
[2023-11-17] VITALS (10 sets, daily range): BP systolic 113–139; BP diastolic 83–96; PULSE 87–101; RESP 18–22; TEMP 36.6–37.1; O2SAT 89–92
[2023-11-17] MEDS: IPRAT-ALBUT 0.5-2.5 MG/3 ML NEB 1 NEB IH ×6 (03:28→22:13)
[2023-11-17] MEDS: METHYLPREDNISOLONE SOD SUCC 62.5 MG/ML (125) 125 MG IVP (05:39)
[2023-11-17 06:12] LABS: HCO3 VBG 31 mmol/L (21-28); PCO2 VBG 55 mmHG (40-50); PO2 VBG < 30.1 mmHG (25-47); pH VBG 7.361 (7.32-7.43)
[2023-11-17 06:23] LABS: Basophils Absolute Auto 0.01 K/uL (0.00-0.30); Basophils Percent Auto 0.2 % (0.0-3.0); Hematocrit 45.6 % (33.0-51.0); Hemoglobin* 15.2 gm/dL (12.0-16.0); Immature Granulocytes Abs Auto 0.02 K/uL (0.00-0.30); Immature Granulocytes Pct Auto 0.3 %; Lymphocytes Percent Auto 8.1 % (20-44); Mean Corpuscular HGB Conc 33 gm/dL (32-36); Mean Corpuscular Hemoglobin 34 pg (26-34); Mean Corpuscular Volume 102 fL (80-100); Monocytes Percent Auto 0.7 % (0.0-11.0); Neutrophils Percent Auto 90.7 % (42.0-72.0); Platelet Count* 265 K/uL (140-440); RDW Coefficient of Variation % 12.6 % (11.5-15.5); Red Blood Count 4.49 m/uL (4.00-5.20); White Blood Count* 5.78 K/uL (4.50-11.00)
[2023-11-17] MEDS: OMEPRAZOLE 20 MG CAPSULE DR 40 MG PO ×2 (06:34→18:12)
[2023-11-17 06:36] LABS: Chloride* 106 mmol/L (96-114)
[2023-11-17 06:37] LABS: Potassium* 5.1 mmol/L (3.6-5.1); Sodium* 139 mmol/L (135-149)
[2023-11-17 06:39] LABS: Anion Gap 4 mEq/L (7-15); Carbon Dioxide* 29 mmol/L (20-32); Creatinine* 0.7 mg/dL (0.5-1.5); Est. Creatinine Clearance* 85.19; Estimated Glomerular Filt Rate 100 ml/min
[2023-11-17 06:40] LABS: Blood Urea Nitrogen* 26 mg/dL (7-30); Glucose* 146 mg/dL (60-115)
--- NOTE | 2023-11-17 06:53 | PC.NURSE ---
19-: pleasant and cooperative. Indep in room. Pt becomes SOB with ambulation. Pt remains on 3L O2, attempted 2L at 0200 ? pt remained >88% until she fell asleep to which pt desat to 84%. At end of shift pt stated she finally feels like she can breathe and that her chest isnt as ?tight?. Pt has verbalized that she would like to d/c today, leader writer educated pt on needing to maintain O2 sats on RA, leader writer continued to encourage lung exercises. ?
[2023-11-17 07:02] LABS: Slide Review Acceptable Review (Acceptable); Slide Review Reflex Yes
[2023-11-17 07:08] LABS: Thyroid Stimulating Hormone* 0.122 uIU/mL (0.270-4.20)
[2023-11-17] MEDS: guaiFENesin 600 MG TAB.ER.12H 1200 MG PO ×2 (09:20→21:27)
[2023-11-17] MEDS: SODIUM CHLORIDE 0.9 % (FLUSH) 10 ML SYRINGE 5 ML IVF ×2 (09:20→21:27)
[2023-11-17] MEDS: hydroCHLOROthiazide 25 MG TABLET PO (09:20)
--- NOTE | 2023-11-17 10:17 | PM.IMPN1 ---
Progress Note: A&P Assessment and plan (1) COPD exacerbation: Problem details: - Doxy and Prednisone were started as an outpatient - she failed these - Ceftriaxone, Azithro to cover for bacterial component (patchy left upper lobe on CTA) - Solu-medrol (transitioned to oral Prednisone on 11/16), nebs (scheduled and prn), Mucinex, RT/RN for aero Bika and ISP - Blood and sputum cultures pending, as are strep/legionella antigens - Covid negative x2 Status: Acute (2) Severe chronic obstructive pulmonary disease: Problem details: - has been followed by Neema Garcia MD ([facility]) but needs new PCP/New specialist as insurance has changed Breo, Spiriva, albuterol daily. Still smokes 5-10 cigs/daily PFTs 07/08/2023 FVC Best 2.38 FVC % 67 FEV1 Best 1.28 FEV1 % 46 FEV1/FVC 53.78 Status: Acute (3) Necrotizing respiratory granulomatosis: Problem details: - RUL - RUL lobectomy in 09/18. Azithro QOD. - mass was PET positive and resection was recommended. All infection/no malignancy. Status: Acute (4) Acute hypokalemia: Problem details: - replace and follow, normal on 11/16 Status: Acute (5) LVH (left ventricular hypertrophy): Problem details: - Noted on CTA, EKG is reassuring - TTE ordered Status: Acute (6) Lung nodule: Problem details: MARIANO, 7mm on our CTA (no comparison available to tele-RAD) However, CT lung screening just done in September was negative. She is high risk. Recommend she meet with new PCP and new director payer who can review previous imaging and this admissions CTA for further cares. Status: Acute (7) GERD (gastroesophageal reflux disease): Problem details: - BID PPI Status: Acute (8) Rhinitis: Status: Acute (9) Smoker: Problem details: - nicotine patch and gum/lozenge ordered Status: Acute Plan - per above - SCDs and ambulation for ppx - likely home in 1-2 days, will perform home O2 evaluation on day of discharge Subjective Date Seen: 11/17/23 Interval history: Malu was admitted last night for acute hypoxic respiratory failure in the setting of COPD exacerbation. This morning, she feels a little better but not back to baseline. Still requiring 1-2L of supplemental oxygen. Has TTE scheduled for today to evaluate L heart. Would like to get up and walk a bit today. No concerns for hospitalist team. Exam Narrative: Exam Narrative: GEN: Alert, sitting comfortably in bed, no tachypnea at rest, speaking in full sentences HEENT: EOMIs bilaterally, no scleral icterus CV: Rate 90-100s, regular, no concerning murmurs R: Decreased breath sounds throughout, expiratory wheezing throughout Ext: wwp, no concerning edema Skin: No concerning skin lesions or rashes on exposed skin Neuro: No focal deficits Psych: Appropriate Const: Vital Signs, click to edit/add: Vital Signs - 24 hr 11/16/23 13:48 11/16/23 14:00 11/16/23 14:30 Temperature 98.4 F Pulse Rate Pulse Rate [Pulse Oximeter] Pulse Rate [Right Femoral] 104 H 92 86 Respiratory Rate 20 27 H 18 Blood Pressure [Ri ght Arm] Blood Pressure [Ri ght Upper Arm] 140/84 H 136/93 H 114/100 H Pulse Oximetry 92 92 91 Oxygen Delivery Me thod Room Air Room Air Room Air Oxygen Flow Rate 11/16/23 15:00 11/16/23 17:55 11/16/23 17:55 Temperature 97.9 F Pulse Rate Pulse Rate [Pulse Oximeter] 91 Pulse Rate [Right Femoral] 87 Respiratory Rate 18 22 22 Blood Pressure [Ri ght Arm] 137/106 H Blood Pressure [Ri ght Upper Arm] Pulse Oximetry 91 93 93 Oxygen Delivery Me thod Room Air Nasal Cannula Nasal Cannula Oxygen Flow Rate 3 3 11/16/23 17:58 11/16/23 17:58 11/16/23 17:58 Temperature 97.9 F Pulse Rate 97 Pulse Rate [Pulse Oximeter] 91 Pulse Rate [Right Femoral] Respiratory Rate 22 22 Blood Pressure [Ri ght Arm] 137/106 H Blood Pressure [Ri ght Upper Arm] Pulse Oximetry 93 93 Oxygen Delivery Me thod Nasal Cannula Nasal Cannula Oxygen Flow Rate 3 3 11/16/23 20:00 11/16/23 23:00 11/16/23 23:00 Temperature 98.8 F 98.8 F Pulse Rate Pulse Rate [Pulse Oximeter] 95 95 Pulse Rate [Right Femoral] Respiratory Rate 24 24 24 Blood Pressure [Ri ght Arm] 114/76 114/76 Blood Pressure [Ri ght Upper Arm] Pulse Oximetry 91 91 Oxygen Delivery Me thod Nasal Cannula Nasal Cannula Oxygen Flow Rate 3 3 11/17/23 00:49 11/17/23 03:00 11/17/23 07:48 Temperature 97.8 F Pulse Rate 94 100 Pulse Rate [Pulse Oximeter] 87 Pulse Rate [Right Femoral] Respiratory Rate 20 Blood Pressure [Ri ght Arm] 113/95 H Blood Pressure [Ri ght Upper Arm] Pulse Oximetry 89 Oxygen Delivery Me thod Nasal Cannula Oxygen Flow Rate 2 11/17/23 08:22 Temperature 98.0 F Pulse Rate Pulse Rate [Pulse Oximeter] 101 H Pulse Rate [Right Femoral] Respiratory Rate 20 Blood Pressure [Ri ght Arm] 118/83 Blood Pressure [Ri ght Upper Arm] Pulse Oximetry 89 Oxygen Delivery Me thod Nasal Cannula Oxygen Flow Rate 2 Labs Labs: Laboratory Results - last 24 hr 11/16/23 11/16/23 11/17/23 15:10 Unknown 06:06 WBC 7.25 5.78 RBC 4.68 4.49 Hgb 15.8 15.2 Hct 47.1 45.6 MCV 101 H 102 H MCH 34 34 MCHC 34 33 RDW Coeff of Breonna 12.8 12.6 Plt Count 265 265 Neut % (Auto) 55.9 90.7 H Lymph % (Auto) 33.8 8.1 L [place] % (Auto) 6.9 0.7 Eos % (Auto) 2.5 0.0 Baso % (Auto) 0.6 0.2 Neut # (Auto) 4.06 5.20 Lymph # (Auto) 2.45 0.50 L [place] # (Auto) 0.50 0.00 Eos # (Auto) 0.18 0.00 Baso # (Auto) 0.04 0.01 Abs Immat Gran (auto) 0.02 0.02 Imm/Tot Granulo (auto) 0.3 0.3 Diff Slide Review Acceptable Review VBG pH 7.403 7.361 VBG pCO2 50 55 H VBG pO2 < 30.1 VBG HCO3 31 H 31 H Sodium 140 139 Potassium 3.2 L 5.1 Chloride 104 106 Carbon Dioxide 28 29 Anion Gap 8 4 L BUN 24 26 Creatinine 0.8 0.7 Estimated Creat Clear 77.32 85.19 Estimated GFR 85 100 Glucose 89 146 H Lactate 1.2 Calcium 10.1 10.0 Troponin I < 0.01 L C-Reactive Protein < 0.5 L NT-Pro-B Natriuret Pep 145 Lipase 56 Procalcitonin 0.04 TSH 0.122 L SARS-CoV-2 (PCR) Negative SARS-CoV-2 Influenza Type A (PCR) Negative PCR FLU A Influenza Type B (PCR) Negative PCR FLU B RSV (PCR) Negative PCR RSV
[2023-11-17] MEDS: predniSONE 20 MG TABLET 60 MG PO (10:42)
[2023-11-17 16:04] LABS: S pneumo Ag Urine S. pneumo Negative (Negative)
[2023-11-17 16:05] LABS: Legionella pneumo Ag Urine L. pneumo Negative (Negative)
[2023-11-17] MEDS: NICOTINE 7 MG PATCH 1 PATCH TRANSDERMA (18:12)
[2023-11-17] MEDS: cefTRIAXone 1 GM in 0.9 % SODIUM CHLORIDE Mini-bag 100 ML IVPB (18:12)
[2023-11-17] MEDS: AZITHROMYCIN 250 MG TABLET 500 MG PO (21:27)
[2023-11-17 23:37] LABS: Free T4 Free Thyroxine* 1.35 ng/dL (0.70-1.85)
[2023-11-18] MEDS: IPRAT-ALBUT 0.5-2.5 MG/3 ML NEB 1 NEB IH ×2 (04:22→07:18)
[2023-11-18 04:23] VITALS: BP 143/94; PULSE 93; RESP 20; TEMP 36.6; O2SAT 90
--- NOTE | 2023-11-18 04:55 | PC.NURSE ---
[id number]: Patient friendly and cooperative. 1Lt NC to maintain sats >88. Trialed O2 off during noc but patient dipped to 83% within 15 minutes. Patient reports feeling better. SOB w/activity. Ambulated x1 in luc[place].
[2023-11-18 06:24] LABS: HCO3 VBG 33 mmol/L (21-28); PCO2 VBG 51 mmHG (40-50); PO2 VBG 35.2 mmHG (25-47); pH VBG 7.414 (7.32-7.43)
[2023-11-18 06:34] LABS: Basophils Absolute Auto 0.01 K/uL (0.00-0.30); Basophils Percent Auto 0.1 % (0.0-3.0); Eosinophils Absolute Auto 0.04 K/uL (0.00-0.50); Eosinophils Percent Auto 0.4 % (0.0-7.0); Hematocrit 42.2 % (33.0-51.0); Hemoglobin* 14.2 gm/dL (12.0-16.0); Immature Granulocytes Abs Auto 0.04 K/uL (0.00-0.30); Immature Granulocytes Pct Auto 0.4 %; Lymphocytes Percent Auto 13.6 % (20-44); Mean Corpuscular HGB Conc 34 gm/dL (32-36); Mean Corpuscular Hemoglobin 34 pg (26-34); Mean Corpuscular Volume 101 fL (80-100); Monocytes Percent Auto 7.9 % (0.0-11.0); Neutrophils Percent Auto 77.6 % (42.0-72.0); Platelet Count* 285 K/uL (140-440); RDW Coefficient of Variation % 12.8 % (11.5-15.5); Red Blood Count 4.18 m/uL (4.00-5.20); White Blood Count* 10.57 K/uL (4.50-11.00)
[2023-11-18 06:44] LABS: Slide Review Reflex No
[2023-11-18 07:02] LABS: Chloride* 100 mmol/L (96-114); Potassium* 3.8 mmol/L (3.6-5.1); Sodium* 138 mmol/L (135-149)
[2023-11-18 07:04] LABS: Creatinine* 0.8 mg/dL (0.5-1.5); Est. Creatinine Clearance* 74.54; Estimated Glomerular Filt Rate 85 ml/min
[2023-11-18 07:05] LABS: Anion Gap 7 mEq/L (7-15); Blood Urea Nitrogen* 27 mg/dL (7-30); Calcium* 9.9 mg/dL (8.4-10.6); Carbon Dioxide* 31 mmol/L (20-32); Glucose* 87 mg/dL (60-115); Magnesium* 1.9 mg/dL (1.5-2.6)
[2023-11-18] MEDS: OMEPRAZOLE 20 MG CAPSULE DR 40 MG PO (07:18)
[2023-11-18 08:04] VITALS: PULSE 92
[2023-11-18 08:11] VITALS: BP 130/83; PULSE 97; RESP 20; TEMP 37.1; O2SAT 91
[2023-11-18] MEDS: predniSONE 20 MG TABLET 40 MG PO (08:12)
[2023-11-18] MEDS: guaiFENesin 600 MG TAB.ER.12H 1200 MG PO (08:13)
[2023-11-18] MEDS: hydroCHLOROthiazide 25 MG TABLET PO (08:13)
--- NOTE | 2023-11-18 09:49 | RESP.RT ---
Patient 89-90 on room air. Patient spo2 86% with activity. Patient spO2 90% with 3lpm during activity. MD notified
--- NOTE | 2023-11-18 11:10 | P.DS_ITS ---
DS: Providers Provider Date Seen: 11/18/23 Date of admission: 11/16/23 17:58 Primary care physician: Not a Local Provider Admitting Clinician: Angeline Campuzano MD Attending Physician on discharge: Chantal Cast MD Date of Discharge: 11/18/23 DS: Diagnosis Discharge Diagnosis (1) COPD exacerbation: Status: Acute Problem details: - Doxy and Prednisone were started as an outpatient prior to admission, failed - Ceftriaxone, Azithro to cover for bacterial component (patchy left upper lobe on CTA) - Solu-medrol (transitioned to oral Prednisone on 11/16), nebs (scheduled and prn), Mucinex, RT/RN for aero Bika and ISP - Blood and sputum cultures negative, as are strep/legionella antigens - Covid negative x2 - improved and requesting d/c home on 11/17; seen by RT and home O2 therapy recommended for activity (2) Severe chronic obstructive pulmonary disease: Status: Acute Problem details: - has been followed by Neema Garcia MD ([facility]) but needs new PCP/New specialist as insurance has changed Breo, Spiriva, albuterol daily. Still smokes 5-10 cigs/daily, interested in quitting PFTs 07/08/2023 FVC Best 2.38 FVC % 67 FEV1 Best 1.28 FEV1 % 46 FEV1/FVC 53.78 (3) Necrotizing respiratory granulomatosis: Status: Acute Problem details: - RUL - RUL lobectomy in 09/18. Azithro QOD - mass was PET positive and resection was recommended. All infection/no malignancy (4) Acute hypokalemia: Status: Acute Problem details: - replace and follow, normal on discharge; Magnesium also wnl (5) LVH (left ventricular hypertrophy): Status: Acute Problem details: - Noted on CTA, EKG is reassuring - TTE ordered, formal results pending upon discharge (6) Lung nodule: Status: Acute Problem details: - MARIANO, 7mm on our CTA (no comparison available to tele-RAD) - CT lung screening just done in September 2023 was negative and she is high risk - will f/u with new PCP ([facility]) and new life skills coach who can review previous imaging and this admissions CTA for further cares (7) GERD (gastroesophageal reflux disease): Status: Acute Problem details: - BID PPI (8) Rhinitis: Status: Acute Problem details: - stable on Mucinex (9) Smoker: Status: Acute Problem details: - nicotine patch and gum/lozenge ordered (10) Abnormal TSH: Status: Acute Problem details: - suppressed TSH during stay, has typically been on the lower end of normal per chart review - normal T4, will have outpatient f/u for this DS: Summary Hospital Course Hospital Course: Malu was admitted to the hospital on 11/15 for acute hypoxic respiratory failure in the setting of acute COPD exacerbation (failed outpatient course of Doxycycline and Prednisone). She was treated with supplemental oxygen, nebulizer treatments, Ceftriaxone/Azithromycin, and steroids. Other notable findings above (abnormal CT, TSH). Patient improved and requesting d/c home on 11/17. Seen by RT and qualified for home O2 (3L per NC with activity). She will also d/c home on a steroid taper. She would like to establish care locally; has a hospital f/u with Dr. Perea, then will see Dr. Zamora for ongoing primary care. Followup for new PCP: - formal TTE results - plan for f/u CT - repeat TSH in 4-6 weeks - Pulmonology referral (previously seen at [facility], recent insurance change) Time spent discussing smoking cessation with patient: 3 to 10 minutes Status at Discharge Functional status at discharge: independent ambulation Overall status at discharge: patient is progressing back to baseline Time Spent with Patient Time attestation: Total time spent providing and/or coordinating discharge services: Time spent: Greater than 30 minutes Specific discharge activities: Home oxygen, education, medication reconciliation Exam Narrative: Exam Narrative: GEN: Alert, oriented, nontoxic HEENT: EOMIs bilaterally, no scleral icterus CV: RRR, No concerning murmurs R: Expiratory wheezing throughout, + bibasilar rhonchi Ext: wwp, no concerning edema Skin: No concerning skin lesions or rashes on exposed skin Neuro: No focal deficits, no resting tremor Psych: Appropriate Const: Vital Signs, click to edit/add: Vital Signs - 24 hr 11/17/23 11:51 11/17/23 15:07 11/17/23 15:11 Temperature 98.7 F 98.3 F Pulse Rate 100 Pulse Rate [Pulse Oximeter] 90 98 Respiratory Rate 18 18 Blood Pressure [Ri ght Arm] 125/86 139/90 H Pulse Oximetry 92 89 Oxygen Delivery Me thod Nasal Cannula Nasal Cannula Oxygen Flow Rate 2 2 11/17/23 20:05 11/17/23 22:14 11/17/23 23:00 Temperature 98.4 F 97.9 F Pulse Rate 94 Pulse Rate [Pulse Oximeter] 100 95 Respiratory Rate 22 20 [facility] 132/96 H 135/91 H Pulse Oximetry 90 92 Oxygen Delivery Me thod Nasal Cannula Nasal Cannula Oxygen Flow Rate 1.0 1.0 11/18/23 04:23 11/18/23 08:04 11/18/23 08:11 Temperature 97.9 F 98.7 F Pulse Rate 92 Pulse Rate [Pulse Oximeter] 93 97 Respiratory Rate 20 20 Blood [facility] 143/94 H 130/83 Pulse Oximetry 90 91 Oxygen Delivery Me thod Nasal Cannula Room Air Oxygen Flow Rate 1.0 DS: Data Data Completed and Pending Labs on day of discharge: Labs from last 24 hours 11/18/23 11/17/23 11/17/23 06:11 22:26 14:58 WBC 10.57 RBC 4.18 Hgb 14.2 Hct 42.2 MCV 101 H MCH 34 MCHC 34 RDW Coeff of Breonna 12.8 Plt Count 285 Neut % (Auto) 77.6 H Lymph % (Auto) 13.6 L [place] % (Auto) 7.9 Eos % (Auto) 0.4 Baso % (Auto) 0.1 Neut # (Auto) 8.20 H Lymph # (Auto) 1.40 [place] # (Auto) 0.80 Eos # (Auto) 0.04 Baso # (Auto) 0.01 Abs Immat Gran (auto) 0.04 Imm/Tot Granulo (auto) 0.4 VBG pH 7.414 VBG pCO2 51 H VBG pO2 35.2 VBG HCO3 33 H Sodium 138 Potassium 3.8 Chloride 100 Carbon Dioxide 31 Anion Gap 7 BUN 27 Creatinine 0.8 Estimated Creat Clear 74.54 Estimated GFR 85 Glucose 87 Calcium 9.9 Magnesium 1.9 Free T4 Urine L. pneumophilia Ag L. pneumo Negative Urine Strep pneumoniae Ag S. pneumo Negative Ur Strep pneumoniae Ag Lab Acknowledgement Test Added 11/17/23 11/16/23 06:06 16:21 WBC RBC Hgb Hct MCV MCH MCHC RDW Coeff of Breonna Plt Count Neut % (Auto) Lymph % (Auto) [place] % (Auto) Eos % (Auto) Baso % (Auto) Neut # (Auto) Lymph # (Auto) [place] # (Auto) Eos # (Auto) Baso # (Auto) Abs Immat Gran (auto) Imm/Tot Granulo (auto) VBG pH VBG pCO2 VBG pO2 VBG HCO3 Sodium Potassium Chloride Carbon Dioxide Anion Gap BUN Creatinine Estimated Creat Clear Estimated GFR Glucose Calcium Magnesium Free T4 1.35 Urine L. pneumophilia Ag Urine Strep pneumoniae Ag Ur Strep pneumoniae Ag Pending Lab Acknowledgement Discharge Plan Discharge Disposition: Home, Self-Care Date of Admission: 11/16/23 17:58 Attending Provider on Discharge: Chantal Cast Primary Care Provider: Provider,Not a Local Condition: Improved Anticipated Discharge Date/Time: 11/18/23 09:05 Discharge Medications: New azithromycin 250 mg Tablet 250 mg PO Q24H 2 Days Qty: 2 0RF Taper: Z-JOSHUA 250 mg Q24H for 2 Days and 0 Hour Rx Instructions: 2 more days to complete full Z-Pack course nicotine (polacrilex) 4 mg Gum 4 mg buccal Q1H PRNQty: 100 3RF guaifenesin [Mucinex] 600 mg Tablet Extended Release 12hr 1,200 mg PO BID Qty: 60 3RF nicotine 14 mg/24 hr patch 24 hour 1 patch transdermal Q24H Qty: 28 3RF prednisone 10 mg tablet 10 mg PO DIRECTED 16 Days Qty: 16 0RF Rx Instructions: 4 tabs daily for 4d, then 3 tabs daily x3d, then 2 tabs daily x2d, then 1 tab daily x7d, then stop Continued ipratropium-albuterol 0.5 mg-3 mg(2.5 mg base)/3 mL solution for nebulization 3 ml INHALATION Q6H PRN (Reason: cough) azithromycin 250 mg tablet 250 mg PO Q48H methocarbamol 750 mg tablet 750 mg PO TID PRN lansoprazole 30 mg capsule,delayed release(DR/EC) 30 mg PO BID hydrochlorothiazide 25 mg tablet 25 mg PO DAILY albuterol sulfate [Ventolin HFA] 90 mcg/actuation HFA aerosol inhaler 1 - 2 puff INHALATION Q4H PRN (Reason: dyspnea) fluticasone furoate-vilanterol [Breo Ellipta] 200-25 mcg/dose blister with device 1 ea INHALATION DAILY Spiriva Respimat 2.5 mcg/actuation mist 2 puff INHALATION DAILY hydroxyzine pamoate 25 mg capsule 25 - 50 mg PO HS PRN naproxen 500 mg tablet 500 mg PO BID PRN rosuvastatin 10 mg tablet 10 mg PO QPM sennosides-docusate sodium [Colace 2-In-1] 8.6-50 mg tablet 1 tab-cap PO BID PRN Discharge Orders: Discharge Order (Routine); Ordered 11/18/23 Ordered By: Chantal Cast Patient Education: Nicotine (Into the mouth), Guaifenesin (By mouth), Azithromycin (By mouth), Nicotine (Absorbed through the skin), COPD (Chronic Obstructive Pulmonary Disease) (DC), Hypoxia (GEN) Additional Instructions: 2 more days of Azithromycin sent to Pharmacy, in addition to Prednisone taper and Mucinex. Wear your oxygen with activity per Respiratory Therapy recommendations. Great work on the quitting smoking! Nicotine replacement sent to [facility] as well. The [place] QUIT LINE is another option for resources. Activity Level: No strenuous activity Discharge Diet: Regular Diet Detail: Increased Protein will help with recovery from illness Follow Up Appointments: Rosana Zamora MD [Staff Physician] - Mykel Perea MD [Staff Physician] - 11/27/23 4:15 pm (Dr. Perea - [facility] and clinic for hospital follow up, 11/26 at 4:15pm Dr. Zamora - [facility] and clinic for [facility], 12/24 at 09:30am) Provider,Not a Local [Primary Care Provider] - (Please call [facility] and make appointment with Dr. Mcginnis to [facility] d/c followup please (new patient)) Forms: Foradian Info Instructions
[2023-11-18 23:12] LABS: Strep pneumoniae Ag, Urine Negative (Negative)
[2023-11-20 01:00] LABS: Strep pneumoniae Ag, Urine Negative (Negative)
== END 2023-11-18 13:29 | disposition home or self-care (01) | DRG 140 ==
LOC: ED 14:36 → MEDSURG 22:12
PROVIDERS: Family Medicine; Admitting Provider Family Medicine; Emergency Provider Emergency Medicine; Visit Provider Family Medicine
DX: J44.1 Chronic obstructive pulmonary disease with (acute) exacerbation (principal); F17.200 Nicotine dependence, unspecified, uncomplicated; Z90.2 Acquired absence of lung [part of]; M31.30 Wegener's granulomatosis without renal involvement; I51.7 Cardiomegaly; R91.1 Solitary pulmonary nodule; K21.9 Gastro-esophageal reflux disease without esophagitis; E87.6 Hypokalemia; J44.9 Chronic obstructive pulmonary disease, unspecified; J31.0 Chronic rhinitis; J96.01 Acute respiratory failure with hypoxia; R94.6 Abnormal results of thyroid function studies
CPT/HCPCS: 36415; 71275; 80048; 82803; 83605; 83690; 83735; 83880; 84145; 84439; 84443; 84484; 85025; 86140; 87449; 87631; 87899; 93005; 93306; 94640; 94761; 99284; A9270; J0696; J2919; J7030; J7512; Q9967; S4990

== ENCOUNTER 2024-10-27 16:56 | Emergency (ER) | payer BC, SELFPAY ==
--- OUTSIDE RECORDS SUMMARY | 2024-10-27 16:59 | XMS_ITS | Encounter Summary ---
Author Organization [facility] Address [address] [place], [place] [address]. [place] [address] Care Team Providers Care Medical Liaison Name Role Phone Tavia France MD Primary Care Provider [phone] Katerina Suggs APRN [facility] Primary Care Pro vider Reason for Visit * Reason Onset Date Comments CT Results 08/30/[address] resu lts from 08/29/13 Encounter Details Date Type Department Care Team (Late st Contact Info) Description 08/30/[address] [id number] Tavia France MD [address] [id number] CT Results (requests CT results from 08/29/13) Social History Tobacco Use Types Packs/Day Years Used Date Smoking Tobacco: Every Day Cigarettes 1 23 Alcohol Use Standard Drinks/Week Comments Yes 0 (1 standard drink = 0.6 oz pur e alcohol) very rarely Comments No Sex and Gender Information Value Date Recorded Sex Assigned at Not on file Legal Sex Female 3:06 AM [employer] Gender Identity Not on file Sexual Orientation Not on file 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 She acknowledged understanding. T [employer] VEGETABLE [employer]ER * Telephone Encounter - Tavia France MD - 08/30/2013 11:01 AM [employer] PARER The results can take a day or two to come to my inbasket, then another few days to get to her, unless there is something medically urgent about the results, in which case I get a call from the radiologist and would call her. She should have them by the end of the week. - LP [employer]GET[employer]ER * Telephone Encounter - Shell Carr - 08/30/2013 10:17 AM CST Had done at [facility] CT results not done yet. Pt wanting results. i will call and see what the hold up is. Pt aware. Shell Carr RN [employer] * Telephone Encounter - Dejah Hartmann - 08/30/2013 9:51 AM CST Main reason for the call: Pt requesting the results from the CT scan 08/29/13. (If Osheet) brief description and duration of symptoms Have you offered an Evisit or Virtual visit if appropriate? no Wants a reply via phone call Ok for the call to wait for PCP? NO (be aware that if the patients PCP is out of clinic to be sure you are letting the patient know when they will be back in. Look not only at regularly scheduled dayoff but if they are on vacation or not.) May leave detailed message?: YES Consent on file to speak with caller? YES. If not, please obtain verbal consent from patient prior to sending the message. A RX may be necessary please provide name and location of the patients Preferred pharmacy: [facility] T [employer]GETABLE PARER documented in this encounter Plan of Treatment Not on file documented as of this encounter Visit Diagnoses Not on filedocumented in this encounter Care Teams Medical Liaison Relationship Specialty Start Date End Date Tavia France MD [facility] [address] [place] [address] PCP - General Family Practice 08/30/13 03/15/14 Katerina Suggs APRN CNP [facility] [address] [place] [address] PCP - General Nurse Practitioner - Family 03/16/14 documented as of this encounter
--- OUTSIDE RECORDS SUMMARY | 2024-10-27 16:59 | XMS_ITS | Clinical Summary ---
Author Organization [facility] Address [address] [place], [place] [address]. [place] [address] Care Team Providers Care Design Maintenance Engineer Name Role Phone Unavailable Primary Care Provider Unavailabl e Allergies Active Allergy Reactions Criticality Noted Date Comments Azithromycin 08/25/2013 Stomach burning Cats 10/11/2013 Sulfa Antibiotics 02/03/2008 Ithcing all over Medications amoxicillin-cla vulanate (AUGMENTIN) 875-125 MG per tabletIndicatio ns:Acute sinusitis with symptoms > 10 days Take 1 tablet by mouth 2 times daily 20 tablet 0 4 Active fluconazole (DIFLUCAN) 150 MG tabletIndicatio ns:Acute sinusitis with symptoms > 10 days Take 1 tablet (150 mg) by mouth every 3 days 4 tablet 0 4 Active amoxicillin-cla vulanate (AUGMENTIN) 875-125 MG per tabletIndicatio ns:Sinusitis Take 1 tablet by mouth 2 times daily 20 tablet 0 4 Active varenicline (CHANTIX STARTING MONTH ) 0.5 MG X 11 & 1 MG X 42 tabletIndicatio ns:Tobacco abuse Take 0.5 mg tab daily for 3 days, then 0.5 mg tab twice daily for 4 days, then 1 mg twice daily. 53 tablet 0 4 Active fluticasone (FLOVENT HFA) 220 MCG/ACT inhalerIndicati ons:COPD (chronic obstructive pulmonary disease) (H) Inhale 2 puffs into the lungs 2 times daily 1 Inhaler 1 4 Active nitrofurantoin, macrocrystal-mo nohydrate, (MACROBID) 100 MG capsuleIndicati ons:Dysuria Take 1 capsule (100 mg) by mouth 2 times daily 14 capsule 0 4 Active ciprofloxacin (CIPRO) 250 MG tabletIndicatio ns:Dysuria Take 1 tablet (250 mg) by mouth 2 times daily 6 tablet 0 4 Active fluconazole (DIFLUCAN) 150 MG tabletIndicatio ns:Acute sinusitis with symptoms > 10 days Take 1 tab po every 3 days prn yeast infection 3 tablet 0 4 Active guaiFENesin-cod eine (ROBITUSSIN AC) 100-10 MG/5ML SOLNIndications :Acute sinusitis with symptoms > 10 days Take 1-2 tsp po before bed prn cough 240 mL 0 4 Active albuterol (2.5 MG/3ML) 0.083% nebulizer solutionIndicat ions:COPD (chronic obstructive pulmonary disease) (H) Take 1 vial (2.5 mg) by nebulization every 6 hours as needed for shortness of breath / dyspnea 360 mL 1 5 Active Ipratropium-Alb uterol (COMBIVENT RESPIMAT) 20-100 MCG/ACT inhalerIndicati ons:COPD (chronic obstructive pulmonary disease) (H) Inhale 1 puff into the lungs 4 times daily Not to exceed 6 doses per day. 3 Inhaler 1 5 Active LANsoprazole (PREVACID) 30 MG capsule Take 1 capsule (30 mg) by mouth 2 times daily Take 30-60 minutes before a meal. 180 capsule 0 5 Active Ipratropium-Alb uterol (COMBIVENT RESPIMAT) 20-100 MCG/ACT inhalerIndicati ons:Chronic obstructive pulmonary disease, unspecified COPD type (H) Inhale 1 puff into the lungs 4 times daily Not to exceed 6 doses per day. 1 Inhaler 0 5 Active tiotropium (SPIRIVA HANDIHALER) 18 MCG inhalation capsule Inhale contents of one capsule daily. 90 capsule 0 5 Active Active Problems Problem Noted Date Diagnosed Date Chronic obstructive pulmonar y disease, unspecified COPD type 05/30/2015 Chronic maxillary sinusitis 08/25/2013 Tobacco abuse 08/25/2013 Pulmonary nodules 08/25/2013 Enlarged lymph node 08/25/2013 Overview (08/25/2013): Hilar Postsurgical status 06/13/2013 Overview (09/01/2013): Overview: L5-S1 CARDIOVASCULAR SCREENING; LDL GOAL LESS THAN 160 12/02/2009 Hyperthyroidism 02/04/2008 GERD (gastroesophageal reflux disease) 8 Resolved Problems Problem Noted Date Diagnosed Date Resolved Date COPD (chronic obstructive pulmonary disease) 4 05/30/2015 Immunizations Name Administration Dates Next Due Influenza Vaccine >6 months,quad, PF 06/16/2014 TDAP Vaccine (Adacel) 06/16/2014 Family History Medical History Relation Comments C.A.D. Brother 11 2 heart attacks Respiratory Father emphysema Thyroid Disease Maternal Grandmother Respiratory Mother oxygent Thyroid Disease Mother Blood Disease Other 1 shambergs diseas e, self Neurologic Disorder Other 2 migraines, s elf Osteoporosis Other 3 self, was told w ith her back problems that she had osteoposis from an mri that she has Diabetes Paternal Grandmother Cerebrovascular Disease Paternal Uncle 1 Cerebrovascular Disease Paternal Uncle 2 Cerebrovascular Disease Paternal Uncle 3 Cerebrovascular Disease Paternal Uncle 4 Diabetes Son 4 Relation Status Comments Brother 1 Alive Brother 2 Alive Brother 3 Alive Brother 4 Alive Brother 5 Alive Brother 6 Alive Brother 7 Alive Brother 8 Alive Brother 9 Alive Brother 10 Alive Brother 11 Father (Age 64) emphysema Maternal Grandfather Maternal Grandmother Mother Alive Other 1 Other 2 Other 3 Paternal Grandfather Paternal Grandmother Paternal Uncle 1 Paternal Uncle 2 Paternal Uncle 3 Paternal Uncle 4 Son 1 Alive Son 2 Alive Son 3 Alive Son 4 Social History Tobacco Use Types Packs/Day Years Used Date Smoking Tobacco: Every Day Cigarettes 0.8 30 Smokeless Tobacco: Never Alcohol Use Standard Drinks/Week Comments Yes 0 (1 standard drink = 0.6 oz pur e alcohol) very rarely Adolescent Education Answer Date Record ed Getting School Help Needed Not on file 05/02 Comments No Sex and Gender Information Value Date Recorded Sex Assigned at Not on file Legal Sex Female 3:06 AM CONSTRUCTION ANALYST Gender Identity Not on file Sexual Orientation Not on file 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
--- OUTSIDE RECORDS SUMMARY | 2024-10-27 16:59 | XMS_ITS | Encounter Summary ---
Author Organization [facility] Address [address], [place] [address] Support Name Relationship Address Phone Juan Dan Emergency Contact Unknown David Dan Emergency Contact 11/09 Care Team Providers Care Cnc Cutting Operator Name Role Phone Nazanin Meeks MD Primary Care Provid er Encounter Details Date Type Department Care Team (Late st Contact Info) Description 05/05/2012 Consent for Procedure/Treatme [facility] Department INFORMED CONSENT RECORD Social History Tobacco Use Types Packs/Day Years Used Date Smoking Tobacco: Some Days Alcohol Use Standard Drinks/Week Comments Not Asked 0 (1 standard drink = 0.6 oz pur e alcohol) Comments Unknown Sex and Gender Information Value Date Recorded Sex Assigned at Not on file Legal Sex Female 6:49 AM CDT Gender Identity Not on file Sexual Orientation Not on file documented as of this encounter Progress Notes * [facility], PROVIDER - 05/05/2012 12:00 AM CDT documented in this encounter Plan of Treatment Not on file documented as of this encounter Visit Diagnoses Not on filedocumented in this encounter Additional Health Concerns Infection Onset Date Last Indicated Resolved Time R/O COVID19 03/12/2020 03/12/2020 03/15/2020 2:49 PM CDT R/O COVID19 06/01/2020 06/01/2020 06/04/2020 11:4 2 PM OPERATIONS CHIEF R/O COVID19 09/09/2022 09/09/2022 09/09/2022 9:18 AM OPERATIONS CHIEF documented as of this encounter Care Teams Cnc Cutting Operator Relationship Specialty Start Date End Date Nazanin Meeks MD [address] [place] [address] PCP - General Family Practice 08/04/24 documented as of this encounter
--- OUTSIDE RECORDS SUMMARY | 2024-10-27 16:59 | XMS_ITS | Encounter Summary ---
Author Organization [facility] Address [address] [place], [place] [address]. [place] [address] Care Team Providers Care Family Program Specialist Name Role Phone Tavia France MD Primary Care Provider [phone] Katerina Suggs APRN [facility] Primary Care Pro vider Reason for Referral * Consultation - Closed Specialty Diagnoses / Procedures Referred By Matthew anderson Referred To Contact Diagnoses Chronic maxillary sinusitis Tavia France MD [facility] [address] [address] Phone: tel: [facility] OTOL[facility]OLOGY Referral ID Status Reason Start Date Expiration Date Visits Re quested Visits Authorized [id number] Closed 09/02/2013 03/01/2014 1 1 Comments Your provider has referred you to: [facility]: [facility], [facility] Adult [facility] N[facility], Th[facility] (ENT) [phone], N: [facility] [phone] and N: N: [facility] [phone]/ fax [phone] Please be aware that coverage of these services is subject to the terms and limitations of your health insurance plan. Call member services at your health plan with any benefit or coverage questions. Please bring the following to your appointment: >> Any x-rays, CTs or MRIs which have been performed. Contact the facility where they were done to arrange for chicken picker prior to your scheduled appointment. Any new CT, MRI or other procedures ordered by your specialist must be performed at a [facility] facility or coordinated by your clinic's referral office. >> List of current medications >> This referral request >> Any documents/labs given to you for this referral EM SALES CONSULTANT Reason for Visit * Reason Onset Date Comments CT Results 09/01/2013 Encounter Details Date Type Department Care Team (Late st Contact Info) Description 09/01/2013 [facility] Medical Advice [address] [id number] Tavia France MD [facility] [address] [place] [address] CT Results Social History Tobacco Use Types Packs/Day Years Used Date Smoking Tobacco: Every Day Cigarettes 1 23 Alcohol Use Standard Drinks/Week Comments Yes 0 (1 standard drink = 0.6 oz pur e alcohol) very rarely Comments No Sex and Gender Information Value Date Recorded Sex Assigned at Not on file Legal Sex Female 3:06 AM SYSTEM SALES CONSULTANT Gender Identity Not on file Sexual Orientation Not on file 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 EM SALES CONSULTANT * Telephone Encounter - Deidre Garcia - 09/02/2013 2:44 PM CST HI LP-pt still having ongoing sinus sx per her EMKineticst message. Can you address? Deidre Garcia RN EM SALES CONSULTANT * Telephone Encounter - Tavia France MD - 09/02/2013 2:28 PM SYSTEM SALES CONSULTANT I messaged pt as below. -Tavia France M.D. EM SALES CONSULTANT * Telephone Encounter - Deidre Garcia - 09/02/2013 2:16 PM CST Results are in. Deidre Garcia RN EM SALES CONSULTANT * Telephone Encounter - Remington Portillo - 09/01/2013 5:31 PM CST Noted. Will delay this message to pop-up tomorrow at noon. Thanks Remington Portillo RN EM SALES CONSULTANT * Telephone Encounter - Tavia France MD - 09/01/2013 5:24 PM SYSTEM SALES CONSULTANT Strange! Thanks for looking into this. I'll keep an eye out for these results to get to pt SANDRA. I messaged her. I have a busy schedule tomorrow, but will try to keep an eye out for it, and let her know the results by the end of the day -- if we have not heard anything by mid-day, could an RN please follow up with radiology again? Thanks so much. -Tavia France M.D. EM SALES CONSULTANT * Telephone Encounter - Shell Carr - 09/01/2013 4:44 PM CST Spoke iwht the CT lab and they are looking into why the films haven't been read and dictated yet. They said they will have done tomorrow. Shell Carr RN EM SALES CONSULTANT * Telephone Encounter - Remington Portillo - 09/01/2013 4:[address] who states staff in the morning would have to get that done. Results will be done sandra tomorrow morning. I've messaged Pt as below. Remington Portillo RN EM SALES CONSULTANT * Telephone Encounter - Tavia France MD - 09/01/2013 4:26 PM SYSTEM SALES CONSULTANT No, NOW that is seeming weird, should have them by now. I'm not in clinic for the rest of the day. Could you please call radiology and find out why there is no report yet, or get me a number so I cantry to call? Thanks. - Tavia France M.D. EM SALES CONSULTANT * Telephone Encounter - Shell Carr - 09/01/2013 3:57 PM CST Not sure why these ct results are taking so long Any ideas? Thanks! TOBI Goff Triage Nurse EM SALES CONSULTANT documented in this encounter Plan of Treatment Scheduled Referrals Name Type Priority Associated Diagnoses Orde r Schedule OTOLARYNGOLOGY REFERRAL Referral Routine Chronic maxillary sinusitis Ordered: 09/02/2013 documented as of this encounter Visit Diagnoses Diagnosis Chronic maxillary sinusitis- Primary documented in this encounter Care Teams Family Program Specialist Relationship Specialty Start Date End Date Tavia France MD [facility] [address] [address] PCP - General Family Practice 08/30/13 03/15/14 Katerina Suggs APRN NURSING PROGRAM DIRECTOR [facility] [address] [address] PCP - General Nurse Practitioner - Family 03/16/14 documented as of this encounter
--- OUTSIDE RECORDS SUMMARY | 2024-10-27 16:59 | XMS_ITS | Clinical Summary ---
[facility] Organization [facility] Address [address] [address] Support Name Relationship Address Phone Juan Dan Emergency Contact Unknown David Dan Emergency Contact 11/09 Care Team Providers Care Chalk Cutter Name Role Phone Radha Meeks MD Primary Care Provid er Source Comments You are receiving this document as you are listed as the primary care provider,follow-up provider, or the patient has been referred to you for consultation.This is in compliance with the Medicare and[facility] EHR Incentive Program,which states Providers who transition their patient to another setting of careor provider of care or refers their patient to another provider of care shouldprovide summary care record for each transition of care or referral. [facility] Allerg[facility] Active Allergy Reactions Criticality Noted Date Comments Sulfa Antibiotics Other, see comments 2 itching Azithromycin Gastrointestinal 05/03/2012 Medications Ibuprofen 200 MG capsule Take 1 Capsule by mouth every 6 hours as needed. Active sennosides-docu sate sodium (SENOKOT S) 8.6-50 MG per tabletIndicatio ns:Constipation Take 1 Tablet by mouth two times a day. Indications: Constipation 40 Tablet 09/05/2022 11:10 AM SUGARCANE PLANTER 3 Active nicotine (NICODERM CQ) 7 MG/24HR patch Apply 1 Patch to skin daily. Remove old patch prior to new patch application Do not start before September 06, 2022. 14 Each 09/05/2022 11:10 AM SUGARCANE PLANTER 3 Active Additional Information Patient not taking.Reported on 07/08/2023 ondansetron (ZOFRAN) 4 MG tabletIndicatio ns:Postoperativ e Nausea and Vomiting Take 1 Tablet (4 mg) by mouth every 8 hours as needed for Nausea. Indications: Nausea and Vomiting Following an Operation 20 Tablet 09/05/2022 11:10 AM SUGARCANE PLANTER 3 Active ipratropium-alb uterol (DUONEB) 0.5-2.5 (3) mg/3ml nebulizer solution Inhale 3 mL every 6 hours as needed (cough). 180 mL 11 3 Active tiotropium (SPIRIVA RESPIMAT) 2.5 MCG/ACT inhalerIndicati ons:Chronic obstructive pulmonary disease, unspecified COPD type (HRC) INHALE 2 PUFFS BY MOUTH EVERY DAY 12 g 3 3 Active lansoprazole (PREVACID) 30 MG capsuleIndicati ons:Gastroesoph ageal reflux disease, unspecified whether esophagitis present Take 1 Capsule (30 mg) by mouth two times a day. 180 Capsule 2 3 Active azithromycin (ZITHROMAX) 250 MG tablet TAKE 1 TABLET(250 MG) BY MOUTH EVERY OTHER DAY 45 Tablet 3 3 Active methocarbamol (ROBAXIN) 750 MG tablet TAKE 1 TABLET(750 MG) BY MOUTH THREE TIMES DAILY NEEDED 90 Tablet 3 3 Active ALBUterol sulfate HFA (VENTOLIN HFA) 108 (90 Base) MCG/ACT inhalerIndicati ons:Chronic obstructive pulmonary disease, unspecified COPD type (HRC) INHALE 1-2 PUFFS BY MOUTH EVERY 4 HOURS NEEDED SHORTNESS OF BREATH OR COUGH 54 g 3 3 Active rosuvastatin (CRESTOR) 10 MG tablet Take 1 Tablet (10 mg) by mouth daily. 90 Tablet 3 3 Active hydrOXYzine pamoate (VISTARIL) 25 MG capsuleIndicati ons:Anxiety (HRC) Take 1-2 Capsules (25-50 mg) by mouth at bedtime as needed for Anxiety (insomnia). 180 Capsule 1 3 Active fluticasone-michelle anterol (BREO ELLIPTA) 200-25 MCG/ACT inhalerIndicati ons:Chronic obstructive pulmonary disease, unspecified COPD type (HRC) INHALE 1 PUFF BY MOUTH DAILY. RINSE MOUTH/ GARGLE AFTER USE 180 Each 3 4 Active naproxen (NAPROSYN) 500 MG tablet TAKE 1 TABLET(500 MG) BY MOUTH TWICE DAILY NEEDED FOR PAIN 90 Tablet 1 4 Active hydroCHLOROthia zide (ORETIC) 25 MG tabletIndicatio ns:Hypertension goal BP (blood pressure) < 140/90 (HRC) Take 1 Tablet (25 mg) by mouth daily. 30 Tablet 5 Active Active Problems Problem Noted Date Diagnosed Date Chronic bilateral low back pain without sciatica 06/02/2023 Insomnia 06/02/2023 Hypertension goal BP (blood pressure) < 140/90 0 09/23/2022 Elevated cholesterol 09/23/2022 Lumbosacral radiculopathy 02/24/2022 Overview (03/06/2022): 8 22 l 4-5 microdiscectomy planned for l 5 root compression bilat Ascending aorta dilatation 08/12/2020 Cervical cancer screening 04/01/2018 Overview (04/06/2018): Per visit note dated March 24, 2018: Hx of abnormal paps: no 2018 NILM, hpv negative 53 y.o. PLAN, per ASCCP Guidelines: Cotest 02/2023 Chronic obstructive pulmonary disease 05/30/2015 Chronic maxillary sinusitis 08/25/2013 Tobacco abuse 08/25/2013 Pulmonary nodules 08/25/2013 History of laminectomy 06/13/2013 Overview (03/05/2022): L5-S1, repeat spine surg 2021 History of sinus surgery 06/13/2013 Mild emphysema 11/12/2011 Pulmonary nodules 11/12/2011 Tobacco use disorder 11/12/2011 Hyperthyroidism 02/04/2008 GERD (gastroesophageal reflux disease) 8 Resolved Problems Problem Noted Date Diagnosed Date Resolved Date Enlarged lymph node 08/25/2013 03/05/20 22 Overview (10/16/2021): Hilar Postsurgical status 06/13/2013 03/05/20 22 Overview (10/16/2021): Overview: L5-S1 Acute sinusitis 03/23/2012 12/12/2015 Overview (04/26/2015): [facility] Encounter for screening for cardiovascular disorders 12/02/2009 03/05/2022 Encounters Date Type Department Care Team Description 08/07/2024 Refill [facility] [address] [place] [address] Radha Meeks MD Refill (hydroCHLOROthiazide (ORETIC) 25 MG tablet [Pharmacy Med Name: HYDROCHLOROTHIAZIDE 25MG TABLETS]) 08/02/[facility]24 [facility] [address] [place] [address] Radha Meeks MD Refill (hydroCHLOROthiazide (ORETIC) 25 MG tablet [Pharmacy Med Name: HYDROCHLOROTHIAZIDE 25MG TABLETS]) 07/29/2024 Refill [facility] [address] [place] [address] Radha Meeks MD Refill (hydroCHLOROthiazide (ORETIC) 25 MG tablet [Pharmacy Med Name: HYDROCHLOROTHIAZIDE 25MG TABLETS]) from Last 3 Months Immunizations Immunization Administration Dates Next Due Flu Vac (3+ yrs) 05/17/2012 Influenza IIV4 (Quadrivalent) 0.5mL (11814) 05/28 PPSV23 (Pneumovax) 05/17/2012 Pfizer Monovalent 12+ Purple Top 10/30/2020,09/24 Tdap 06/16/2014 Family History Medical History Relation Name Comments COPD Father Cerebrovascular Disease Father Emphysema Father Inflammatory Bowel Disease Father Migraines Father Asthma Mother Pat COPD Mother Pat Obesity Mother Pat Osteoporosis Mother Pat Alcohol/Drug Abuse Brother 1 Cerebrovascular Disease Brother 2 Obesity Brother 3 Cataract Negative Family History Glaucoma Negative Family History Macular Degeneration Negative Family History Relation Name Status Comments Father Mother Pat Brother 1 Brother 2 Brother 3 Social History Tobacco Use Types Packs/Day Years Used Date Smoking Tobacco: Some Days Cigarettes 1.5 45.3 Started: 07/27/1979 Smokeless Tobacco: Never Comments:Patient states a pa ck a week x 5 years Alcohol Use Standard Drinks/Week Comments No 0 (1 standard drink = 0.6 oz pur e alcohol) rarely PHQ-2 Answer Date Recorded PHQ-2 Score 0 09/23/2022 Comments No Sex and Gender Information Value Date Recorded Sex Assigned at Not on file Legal Sex Female 6:49 AM CDT Gender Identity Not on file Sexual Orientation Not on file Last Filed Vital Signs Vital Sign Reading Time Taken Comments Blood Pressure 126/84 07/08/2023 1:39 PM SUGARCANE PLANTER Pulse 85 07/08/2023 1:39 PM SUGARCANE PLANTER Temperature 36 C (96.8 F) 07/08/2023 1:39 PM SUGARCANE PLANTER Respiratory Rate 16 07/08/2023 1:39 PM SUGARCANE PLANTER Oxygen Saturation 93% 07/08/2023 1:39 PM SUGARCANE PLANTER Inhaled Oxygen Concentration - - Weight 68.9 kg (151 lb 12.8 oz) 07/08/2023 1:39 PM SUGARCANE PLANTER Height 172.7 cm (5' 8) 07/08/2023 1:39 PM SUGARCANE PLANTER Body Mass Index 23.08 07/08/2023 1:39 PM SUGARCANE PLANTER Plan of Treatment Health Maintenance Due Date Last Done Comments Mammogram 1965 HepB (1) 01/24/1984 FIT Colon Cancer Screening 2009 Pneumococcal 50+ Yrs (2 of 2 - PCV) 05/17/2013 05/17/2012 Zoster/Shingles (1 of 2) 2015 Adult Preventive Visit 02/09/2021 02/10/2020, 2017 Cervical Cancer Screening 03/24/2023 03/24/2018 COVID-19 Vaccine ( season) 2024 10/30/2020, 10/09/2020 Influenza (#1) 2024 06/16/2014, 05/17/2012 DTaP/Tdap/Td (2 - Tdap) 06/16/2024 06/16/2014 Lung Cancer Screening 09/29/2024 09/30/2023 , 09/17/2021, 07/16/2020 Cholesterol 12/22/2027 12/21/2022, 08/28, 09/09/2021, Additional history exists HIV Screening (Preventive Services) Completed 02/10/2020 Hep C Screening (Preventive Services) Completed 02/10/2020 HepA Aged Out No longer eligi ble based on patient's age to complete this topic Hib Aged Out No longer eligi ble based on patient's age to complete this topic IPV (Polio) Aged Out No longer eligi ble based on patient's age to complete this topic MCV4 Aged Out No longer eligi ble based on patient's age to complete this topic Meningococcal B Aged Out No longer el igible based on patient's age to complete this topic Medical Devices Implanted Type Area Room Server Device Identifier Shelf Expiration Date Model / Serial / Lot Splint Nasal [address] - [id number] Implanted:Qty: 1 on 11/30/2015 by Christophe Giles MD at [facility] DEVICE N/A: NOSE [employer] [id number] / / Procedures Procedure Name Priority Date/Time Associated Diagnosis Comments CT CHEST WO IV CONT LUNG SCREENING Routine 09/30/2023 5:30 PM SUGARCANE PLANTER Tobacco use disorder (HRC) LIPID PANEL & DIRECT LDL (IF NEEDED) Routine 12/21/2022 1:52 PM CDT Elevated cholesterol HIV 1/2 AG/AB 4TH GEN Routine 02/10/2020 3:03 PM CDT Screening for HIV (human immunodeficiency virus) HEPATITIS C ANTIBODY, WITH REFLEX Routine 02/10/2020 3:03 PM CDT Need for hepatitis C screening test PAP TEST, ROUTINE Routine 03/24/2018 3:3 0 PM CDT Screening for malignant neoplasm of cervix from Last 3 Months or Most Recently Relevant to Health Maintenance Results * CT Chest WO IV Cont Lung Screening (09/30/2023 5:30 PM SUGARCANE PLANTER) Anatomical Region Laterality Modality Chest, Lung Computed Tomogra phy 09/30/2023 5:30 PM SUGARCANE PLANTER Narrative 10/01/2023 8:14 AM SUGARCANE PLANTER EXAM: LOW DOSE LUNG CANCER SCREENING CT CHEST LOCATION: [facility] DATE: 09/30/2023 INDICATION: Lung cancer screening. History of smoking. High risk patient. COMPARISON: 06/30/2022 TECHNIQUE: Low-dose lung cancer screening non-contrast CT chest. Dose reduction techniques were used. Images assessed using LungRADS 2021 criteria. FINDINGS: NODULES: Calcified granulomas. Right upper lobectomy. Previously seen spiculated nodule no longer present. LUNGS AND PLEURA: Centrilobular and paraseptal emphysema. Mild diffuse bronchiectasis. No consolidation. No basilar honeycombing. No pleural effusions or pneumothorax. MEDIASTINUM: Visualized thyroid gland unremarkable. No thoracic adenopathy. No cardiomegaly. No pericardial effusion. Thoracic aorta is 4.1 cm. Aortic atherosclerosis. CORONARY ARTERY CALCIFICATION: Mild. LIMITED UPPER ABDOMEN: Normal. MUSCULOSKELETAL: Normal. IMPRESSION: 1. Negative for lung cancer screening purposes. 2. Mild fusiform aneurysmal dilation of the ascending thoracic aorta at 4.1 cm. LungRADS CATEGORY: 1S: Negative. RADIOLOGIST RECOMMENDATION(S): Continue annual screening with low-dose screening CT chest in 12 months. Neema Garcia MD RAD CT Final Result * (ABNORMAL) Lipid Panel (Expected: 90 days) (12/21/2022 1:52 PM CDT) Cholesterol 262(H) 0 - 199 mg/dL 12/22/2022 3:26 AM [facility] Triglyceride 85 <=149 mg/dL 12/22/2022 3:[address] [facility] HDL Cholesterol 59 >=40 mg/dL 12/22/2022 3:26 AM [facility] LDL, Calculated 186(H) <130 mg/dL 12/22/2022 3:26 AM T [facility] Non HDL Chol, Calculated 203(H) <=159 mg/dL 12/22/2022 3:26 AM [facility] Cholesterol/HDL Ratio 4.4 12/22/2022 3:26 AM T [facility] Hours Fasting Unknown 12/22/2022 3:26 AM T [facility] Blood Venipuncture / Unknown 12/21/2022 1:52 PM CDT 12/21/2022 1:52 PM CDT us Radha Meeks MD LAB_1 Aurelia yusuf Result Performing Organization Address [facility]/ZIP Co de Phone Number [facility] [address] [address], [facility] [phone] [facility] [address] [place] [phone], [facility] [phone] * HIV 1/2 Ag/Ab 4th Generation (02/10/2020 3:03 PM CDT) HIV 1/2 Antigen/Anti body (4th generation) Negative (Non Reactive) Negative (Non Reactive) 02/10/2020 9:12 PM CDT [facility] Comment:HIV-1 p24 Antigen an d HIV-1/HIV-2 Antibody not detected Blood Venipuncture / Unknown 02/10/2020 3:03 PM CDT 02/10/2020 3:03 PM CDT us Radha Meeks MD LAB_1 Aurelia yusuf Result Performing Organization Address [facility] Co de Phone Number [facility] [address] [place] [address], [facility] [phone] * Hepatitis C Antibody, with Reflex (02/10/2020 3:03 PM CDT) Hepatitis C Antibody Negative (Non Reactive) Negative (Non Reactive) 02/10/2020 9:11 PM CDT [facility] Comment:Antibodies to HCV no t detected. Does not exclude the possiblity of exposure to HCV. Blood Venipuncture / Unknown 02/10/2020 3:03 PM CDT 02/10/2020 3:03 PM CDT us Radha Meeks MD LAB_1 Aurelia yusuf Result Performing Organization Address City/[facility]/ZIP Co de Phone Number [facility] [address] [place], [place] [address] [phone] * Pap Test, Routine (03/24/2018 3:30 PM CDT) Cytology, Pap (NOTE) Insole Stiffener Cytology Report Patient Name: NUSRAT DAN Taken: 03/24/2018 Received: 03/25/2018 Reported: 04/06/2018 Physician(s): RADHA MEEKS Source of Specimen Pap Test, Routine Cervical/Endocervi shazia: Specimen Adequacy Satisfactory for evaluation. Endocervical component present. Final Cytologic Interpretation/Res ult NEGATIVE FOR INTRAEPITHELIAL LESION OR MALIGNANCY (NILM) *Electronically Signed Out By ISABEL Box (ASCP)* Luz Ley CT(ASCP) ISABEL Box (ASCP) Pap Smear History Date of Last Menstrual Period: Menopausal Microscopic Description Microscopic examination is performed. Department of Pathology [address] [place] [id number] [place] [address] LABORATORIES 03/24/2018 3:30 PM CDT 03/25/2018 8:30 AM CDT us Radha Meeks MD LAB_1 Aurelia yusuf Result [facility]ORATORIES [phone] from Last 3 Months or Most Recently Relevant to Health Maintenance Insurance [facility] Advance Directives * Full Code (Latest Code Status on File) Date Activated Date Inactivated Comments 03/26/2022 1:10 PM 03/26/2022 5:41 PM * Full Code Date Activated Date Inactivated Comments 05/05/2012 7:48 AM 05/06/2012 7:27 AM Care Teams Chalk Cutter Relationship Specialty Start Date End Date Radha Meeks MD [address] [place] [address] PCP - General Family Practice 08/04/24
--- OUTSIDE RECORDS SUMMARY | 2024-10-27 16:59 | XMS_ITS | Encounter Summary ---
Author Organization [facility] Address [address], [place] [address] Support Name Relationship Address Phone Juan Dan Emergency Contact Unknown [phone] David Dan Emergency Contact 11/09 Care Team Providers Care Accounting Analyst Name Role Phone Nazanin Meeks MD Primary Care Provid er Encounter Details Date Type Department Care Team (Late st Contact Info) Description 03/17/[address] [facility] Radiology [address] [place] [address] Radiology, Provider MRI SAFETY SHEET AND COMPATIBILITY FORM Social History Tobacco Use Types Packs/Day Years Used Date Smoking Tobacco: Some Days Cigarettes 1 30 Smokeless Tobacco: Never Comments:Pt reports 6 cigare ttes per day Alcohol Use Standard Drinks/Week Comments No 0 (1 standard drink = 0.6 oz pur e alcohol) Comments No Sex and Gender Information Value Date Recorded Sex Assigned at Not on file Legal Sex Female 6:49 AM CDT Gender Identity Not on file Sexual Orientation Not on file documented as of this encounter Plan of Treatment Not on file documented as of this encounter Visit Diagnoses Not on filedocumented in this encounter Additional Health Concerns Infection Onset Date Last Indicated Resolved Time R/O COVID19 03/12/2020 03/12/2020 03/15/2020 2:49 PM CDT R/O COVID19 06/01/2020 06/01/2020 06/04/2020 11:4 2 PM ASTRONOMY PROFESSOR R/O COVID19 09/09/2022 09/09/2022 09/09/2022 9:18 AM ASTRONOMY PROFESSOR documented as of this encounter Care Teams Accounting Analyst Relationship Specialty Start Date End Date Nazanin Meeks MD [address] [place] [address] PCP - General Family Practice 08/04/24 documented as of this encounter
--- OUTSIDE RECORDS SUMMARY | 2024-10-27 16:59 | XMS_ITS | Encounter Summary ---
Author Organization [email or web address] Address [address], [place] [address] Support Name Relationship Address Phone Juan Dan Emergency Contact Unknown [phone] David Dan Emergency Contact 11/09 Care Team Providers Care Screwdown Operator Name Role Phone Nazanin Meeks MD Primary Care Provid er Encounter Details Date Type Department Care Team (Late st Contact Info) Description 11/30/2015 Consent for Procedure/Treatme nt [facility] Department INFORMED CONSENT RECORD Social History Tobacco [...] COVID19 06/01/2020 06/01/2020 06/04/2020 11:4 2 PM SHOP SUPERVISOR R/O COVID19 09/09/2022 09/09/2022 09/09/2022 9:18 AM SHOP SUPERVISOR documented as of this encounter Care Teams Screwdown Operator Relationship Specialty Start Date End Date Nazanin Meeks MD [address] [place] [address] PCP - General Family Practice 08/04/24 documented as of this encounter
--- OUTSIDE RECORDS SUMMARY | 2024-10-27 16:59 | XMS_ITS | Clinical Summary ---
Author Organization [facility] Address [address] [place] [address] Care Team Providers Care Rumper Name Role Phone Yamilet Mistry MD Primary Care Provider [phone] Allergies Active Allergy Reactions Criticality Noted Date Comments Azithromycin Stomach Upset 11/13/2014 Sulfa (Sulfonamide Antibiotics) Rash 01/25 Medications PREVACID 30 MG CAP take 1 capsule (30 mg) by oral route once daily before a meal Active cyclobenzaprine (FLEXERIL) 10 mg tablet 07/17/2020 Active BREO ELLIPTA 200mcg/25mcg inhaler INHALE 1 DOSE DAILY. RINSE MOUTH/GARGLE AFTER USE 06/30/2020 Active hydroCHLOROthia zide (HCTZ) 25 mg tablet Take 25 mg by mouth once daily. 07/11/2020 Active Family History Medical History Relation Name Comments Cancer-breast No Family History Social History Tobacco Use Types Packs/Day Years Used Date Smoking Tobacco: Every Day Cigarettes Smokeless Tobacco: Never Alcohol Use Standard Drinks/Week Comments No 0 (1 standard drink = 0.6 oz pur e alcohol) Comments Unknown Sex and Gender Information Value Date Recorded Sex Assigned at Not on file Legal Sex Female 7:38 AM CHILD WELFARE SPECIALIST Gender Identity Not on file Sexual Orientation Not on file Obstetrics History Last Filed Vital Signs Vital Sign Reading Time Taken Comments Blood Pressure 143/91 08/28/2020 2:59 PM CHILD WELFARE SPECIALIST Pulse 90 08/28/2020 2:59 PM CHILD WELFARE SPECIALIST Temperature 36.8 C (98.3 F) 08/28/2020 2:59 PM CHILD WELFARE SPECIALIST Respiratory Rate 18 08/28/2020 2:59 PM CHILD WELFARE SPECIALIST Oxygen Saturation 94% 08/28/2020 2:59 PM CHILD WELFARE SPECIALIST Inhaled Oxygen Concentration - - Weight 68 kg (150 lb) 08/28/2020 2:59 PM CHILD WELFARE SPECIALIST Height 172.7 cm (5' 8) 08/28/2020 2:59 PM CHILD WELFARE SPECIALIST Body Mass Index 22.81 08/28/2020 2:59 PM CHILD WELFARE SPECIALIST Plan of Treatment Health Maintenance Due Date Last Done Comments Tdap 01/24/1976 Depression screening for age 12+ 1977 HIV for age 15-65 01/24/1980 BMI (ht and wt on same day) for age 18+ 1983 Hepatitis C screening for age 18-79 1983 Tetanus booster 1985 Pap test for age 21-65 1986 Colonoscopy through age 75 2010 Lipids for age 45-75 2010 Mammogram for age 45-75 03/25/2011 03/25/2010 Pneumococcal series for age 50+ (1 of 1 - PCV) 2015 Zoster (shingles) series for age 50+ (1 of 2) 2015 COVID-19 vaccine series (2023- season) 2024 10/30/2020, 10/09/2020 Influenza Vaccine (#1) 2024 Procedures Procedure Name Priority Date/Time Associated Diagnosis Comments XR MAMMO BILAT DIAG FFDM (IA) Routine 03/25/2010 3:22 PM CDT Lump of axilla from Last 3 Months or Most Recently Relevant to Health Maintenance Results * XR MAMMO BILAT DIAG FFDM (03/25/2010 3:22 PM CDT) Anatomical Region Laterality Modality BREASTS, Breast Left, Breast Right Bilateral Mammography Narrative 03/25/2010 4:02 PM CDT BILATERAL FULL-FIELD SCREENING DIGITAL MAMMOGRAPHY WITH COMPUTER-AIDED DETECTION 03/25/2010 INDICATION: Palpable lump posterior to the left axilla. COMPARISON: 02/29/2008. TECHNIQUE: Full-field screening digital mammography with computer-aided detection. FINDINGS: No change. Scattered residual fibroglandular changes. No evidence for malignancy. TARGETED LEFT BREAST/AXILLARY ULTRASOUND: Posterior to the left axilla in the posterior axillary fold is a subcutaneous lesion measuring 1.5 x 1.6 x 0.8 cm. This appears to represent a sebaceous cyst. No abnormality seen within the left breast or axilla. ACR Category 2: Benign findings. Probable sebaceous cyst situated at the posterior axillary fold. Because the lesion bothers the patient, excisional biopsy is suggested. /bjs Procedure Note Mike Hutson - 03/25/2010 BILATERAL FULL-FIELD SCREENING DIGITAL MAMMOGRAPHY WITH COMPUTER-AIDEDDETECTION 03/25/2010 INDICATION: Palpable lump posterior to the left axilla. COMPARISON: 02/29/2008. TECHNIQUE: Full-field screening digital mammography with computer- aideddetection. FINDINGS: No change. Scattered residual fibroglandular changes. Noevidence for malignancy. TARGETED LEFT BREAST/AXILLARY ULTRASOUND: Posterior to the left axilla inthe posterior axillary fold is a subcutaneous lesion measuring 1.5 x 1.6 x0.8 cm. This appears to represent a sebaceous cyst. No abnormality seenwithin the left breast or axilla. ACR Category 2: Benign findings. Probable sebaceous cyst situated at the posterior axillary fold. Becausethe lesion bothers the patient, excisional biopsy is suggested. /bjs Yamilet Mistry MD MAMMO Final Result from Last 3 Months or Most Recently Relevant to Health Maintenance Insurance [facility] Care Teams Rumper Relationship Specialty Start Date End Date Yamilet Mistry MD [address] [place] [address] PCP - General 11/06/11
--- OUTSIDE RECORDS SUMMARY | 2024-10-27 16:59 | XMS_ITS | Encounter Summary ---
Author Organization [employer] Address [address] [address] Support Name Relationship Address Phone Juan Dan Emergency Contact Unknown [phone] David Dan Emergency Contact 11/09 Care Team Providers Care Russian History Professor Name Role Phone Nazanin Meeks MD Primary Care Provid er Encounter Details Date Type Department Care Team (Late st Contact Info) Description 07/01/2021 Refill Order [facility] [address] [place] [address] Neema Garcia MD Social History Tobacco Use Types Packs/Day Years Used Date Smoking Tobacco: Some Days Cigarettes 1 30 Smokeless Tobacco: Never Alcohol Use Standard Drinks/Week Comments No 0 (1 standard drink = 0.6 oz pur e alcohol) rarely PHQ-2 Answer Date Recorded PHQ-2 Score 0 02/10/2020 Comments No Sex and Gender Information Value Date Recorded Sex Assigned at Not on file Legal Sex Female 6:49 AM CDT Gender Identity Not on file Sexual Orientation Not on file documented as of this encounter Nursing Notes * Tavia Sommer - 07/02/2021 12:57 PM CST Letter Sent to Patient. Tavia Sommer 07/02/2021, 12:57 PM M DEVELOPER documented in this encounter Plan of Treatment Not on file documented as of this encounter Visit Diagnoses Diagnosis Encounter for long-term (current) use of medications- Primary Encounter for long-term (current) use of other medications documented in this encounter Additional Health Concerns Infection Onset Date Last Indicated Resolved Time R/O COVID19 09/09/2022 09/09/2022 09/09/2022 9:18 AM CURAM DEVELOPER documented as of this encounter Care Teams Russian History Professor Relationship Specialty Start Date End Date Nazanin Meeks MD [address] [facility] [place] [address] PCP - General Family Practice 08/04/24 documented as of this encounter
--- OUTSIDE RECORDS SUMMARY | 2024-10-27 16:59 | XMS_ITS | Encounter Summary ---
Author Organization [employer] Address [address] [address] Support Name Relationship Address Phone Juan Dan Emergency Contact Unknown [phone] David Dan Emergency Contact 11/09 Care Team Providers Care Data Modeling Architect Name Role Phone Nazanin Meeks MD Primary Care Provid er Encounter Details Date Type Department Care Team (Late st Contact Info) Description 04/23/2016 Correspondence External to External, [place] [address] PROVIDER REMITTANCE ADVICE [facility] Social History Tobacco Use Types Packs/Day Years [...] COVID19 06/01/2020 06/01/2020 06/04/2020 11:4 2 PM ROCKET ENGINE MECHANIC R/O COVID19 09/09/2022 09/09/2022 09/09/2022 9:18 AM ROCKET ENGINE MECHANIC documented as of this encounter Care Teams Data Modeling Architect Relationship Specialty Start Date End Date Nazanin Meeks MD [address] [place] [address] PCP - General Family Practice 08/04/24 documented as of this encounter
--- OUTSIDE RECORDS SUMMARY | 2024-10-27 16:59 | XMS_ITS | Encounter Summary ---
Author Organization [employer] Address [address], [place] [address] Support Name Relationship Address Phone Juan Dan Emergency Contact Unknown [phone] David Dan Emergency Contact 11/09 Care Team Providers Care Gift Basket Packer Name Role Phone Nazanin Meeks MD Primary Care Provid er Encounter Details Date Type Department Care Team (Late st Contact Info) Description 03/31/2020 Refill Order Specialty Center [facility] [address] [facility] [address] Nazanin Meeks MD [address] [place] [address] Social History Tobacco Use Types Packs/Day Years [...] as of this encounter Nursing Notes * Fani Cornell - 04/04/2020 8:16 AM CDT Letter sent to patient. Fani Cornell 04/04/2020, 8:17 AM documented in this encounter Plan of Treatment Not on file documented as of this encounter Visit Diagnoses Diagnosis Encounter for long-term (current) use of medications- Primary Encounter for long-term (current) use of other medications documented in this encounter Additional Health Concerns Infection Onset Date Last Indicated Resolved Time R/O COVID19 06/01/2020 06/01/2020 06/04/2020 11:4 2 PM SCIENCE MANAGER R/O COVID19 09/09/2022 09/09/2022 09/09/2022 9:18 AM SCIENCE MANAGER documented as of this encounter Care Teams Gift Basket Packer Relationship Specialty Start Date End Date Nazanin Meeks MD [address] [place] [address] PCP - General Family Practice 08/04/24 documented as of this encounter
--- OUTSIDE RECORDS SUMMARY | 2024-10-27 16:59 | XMS_ITS | Encounter Summary ---
Author Organization [employer] Address [address] [address] Support Name Relationship Address Phone Juan Dan Emergency Contact Unknown [phone] David Dan Emergency Contact 11/09 Care Team Providers Care Log Hooker Name Role Phone Nazanin Meeks MD Primary Care Provid er Encounter Details Date Type Department Care Team (Late st Contact Info) Description 11/15/2015 Correspondence Specialty [facility] 401 Otolaryngology 401 [facility] [place] [address] Christophe Giles MD [address] [place] [address] FMLA Social History Tobacco Use Types Packs/Day Years Used Date Smoking Tobacco: Some Days Cigarettes 1 30 Comments:Pt reports 6 cigare ttes per day [...] COVID19 06/01/2020 06/01/2020 06/04/2020 11:4 2 PM SCARIFIER OPERATOR R/O COVID19 09/09/2022 09/09/2022 09/09/2022 9:18 AM SCARIFIER OPERATOR documented as of this encounter Care Teams Log Hooker Relationship Specialty Start Date End Date Nazanin Meeks MD [address] [place] [address] PCP - General Family Practice 08/04/24 documented as of this encounter
--- OUTSIDE RECORDS SUMMARY | 2024-10-27 17:00 | XMS_ITS | Encounter Summary ---
Author Organization [employer] Address [address], [place] [address] Support Name Relationship Address Phone Juan Dan Emergency Contact Unknown [phone] David Dan Emergency Contact 11/09 Care Team Providers Care Head Gauge Unit Operator Name Role Phone Nazanin Meeks MD Primary Care Provid er Encounter Details Date Type Department Care Team (Late st Contact Info) Description 11/14/2019 Refill Order Specialty [facility] [address] [place] [address] Neema Garcia MD Social History Tobacco Use [...] as of this encounter Nursing Notes * Aylin Avilez - 11/18/2019 10:18 AM CDT Letter sent to patient. Aylin Avilez 11/18/2019, 10:18 AM documented in this encounter Plan of [...] COVID19 06/01/2020 06/01/2020 06/04/2020 11:4 2 PM INVESTMENT SALES ASSISTANT R/O COVID19 09/09/2022 09/09/2022 09/09/2022 9:18 AM INVESTMENT SALES ASSISTANT documented as of this encounter Care Teams Head Gauge Unit Operator Relationship Specialty Start Date End Date Nazanin Meeks MD [address] [facility] [place] [address] PCP - General Family Practice 08/04/24 documented as of this encounter
--- OUTSIDE RECORDS SUMMARY | 2024-10-27 17:00 | XMS_ITS | Encounter Summary ---
Author Organization [employer] Address [address], [place] [address] Support Name Relationship Address Phone Juan Dan Emergency Contact Unknown [phone] David Dan Emergency Contact 11/09 Care Team Providers Care Sort Worker Name Role Phone Nazanin Meeks MD Primary Care Provid er Encounter Details Date Type Department Care Team (Late st Contact Info) Description 08/30/2019 Refill Order Specialty Center 401 [facility] [address] [facility] [place] [address] Neema Garcia MD Social History Tobacco Use [...] COVID19 06/01/2020 06/01/2020 06/04/2020 11:4 2 PM STUDENT SUCCESS ADVISOR R/O COVID19 09/09/2022 09/09/2022 09/09/2022 9:18 AM STUDENT SUCCESS ADVISOR documented as of this encounter Care Teams Sort Worker Relationship Specialty Start Date End Date Nazanin Meeks MD [address] [place] [address] PCP - General Family Practice 08/04/24 documented as of this encounter
[2024-10-27 17:01] VITALS: BP 143/83; PULSE 109; RESP 20; TEMP 37.3; O2SAT 91; BMI 20.8
--- NOTE | 2024-10-27 17:21 | CRLHL7_ITS ---
For Patients: As a result of the Century Cures Act, medical imaging exams and procedure reports are released immediately into your electronic medical record. You may view this report before your referring provider. If you have questions, please contact your health care provider. INDICATION: COUGH, PAIN; PAIN; HX LUNG CA AND RUL RESECTION. TECHNIQUE: CT chest without contrast. COMPARISON: CT chest PE dated 11/16/2023. FINDINGS: Lungs and pleura: Redemonstrated postsurgical changes right upper resection. Moderate apical predominant centrilobular emphysema. New left apical 0.6 cm solid noncalcified pulmonary nodule with mild spiculation (). At the site of a previously noted irregular left upper lobe lobular consolidation, there is now a new or residual 0.3 cm pulmonary nodule (). No pleural effusions or pneumothorax. Heart and vasculature: Heart size is normal. Similar mild ectasia of the ascending thoracic aorta which measures 4.1 cm ()). Lymph nodes/mediastinum: No mediastinal, hilar, or axillary adenopathy. Chest wall: No masses. Upper abdomen: No acute findings. Bones: No acute or suspicious osseous abnormalities. IMPRESSION: 1. New left upper lobe apical 0.6 cm spiculated pulmonary nodule, concerning for malignancy. This can be further evaluated with a PET-CT, tissue sampling, or a follow-up CT chest in 3 months. 2. Additional left upper lobe 0.3 cm pulmonary nodule at the site of a previously visualized consolidation, which could be postinfectious in etiology, though is indeterminate. Attention on follow-up. 3. No other acute findings in the chest. Please note that all CT scans at this facility use dose modulation, iterative reconstruction, and/or weight-based dosing when appropriate to reduce radiation dose to as low as reasonably achievable. Dictated by Kurtis England MD @ 10/27/2024 6:31:10 PM (Electronically Signed)
--- NOTE | 2024-10-27 17:23 | ED_ITS ---
HPI - General Adult General Chief complaint: Cough Stated complaint: stabbing pain in chest Time Seen by Provider: 10/27/24 16:59 History of Present Illness HPI narrative: This 59-year-old female comes in reporting chest discomfort and cough which is a productive cough. These symptoms began yesterday. She has a history of lung cancer and has had partial resection of for right upper lung in the past. She has not had any follow-up evaluation or treatment regarding her lung cancer and she continues to smoke. She states that her 6 weeks ago. She was not feeling well at that time and did take antibiotic and steroid treatment and felt better for a while. She does have oxygen at home that she uses as needed and also takes inhaled and nebulized treatments for her breathing. She does not report any fevers but states that she felt chilled all day yesterday. She arrives here with normal vital signs except for some tachycardia. Her oximetry is at 91% on room air which is probably close to her baseline. Related Data Previous Rx's ?Medication ?Instructions ?Recorded ipratropium 0.5 mg-albuterol 3 mg 3 ml inhalation Q6H PRN cough #360 12/11/23 (2.5 mg base)/3 mL nebulization mL soln fluticasone furoate 200 1 ea inhalation DAILY #90 ea 02/29/24 mcg-vilanterol 25 mcg/dose inhalation powder (Breo Ellipta) guaifenesin 600 mg tablet, 1,200 mg (2 x 600 mg) PO BID #360 02/29/24 extended release 12 hr (Mucinex) tabs hydrochlorothiazide 25 mg tablet 25 mg PO DAILY #90 tabs 02/29/24 lansoprazole 30 mg capsule,delayed 30 mg PO BID #180 caps 02/29/24 release methocarbamol 750 mg tablet 750 mg PO QHS PRN spasm #90 tabs 02/29/24 tiotropium bromide 2.5 2 puff inhalation DAILY #12 grams 02/29/24 mcg/actuation mist for inhalation (Spiriva Respimat) cefdinir 300 mg capsule 300 mg PO BID #14 caps 09/14/24 prednisone 20 mg tablet 20 mg PO BID #10 tabs 09/14/24 levalbuterol tartrate 45 2 inh inhalation Q6H PRN shortness 10/06/24 mcg/actuation aerosol inhaler of breath or wheezing #45 grams (Xopenex HFA) Allergies Allergy/AdvReac Type Severity Reaction Status Date / Time Sulfa (Sulfonamide AdvReac itching Verified 09/14/24 15:00 Antibiotics) Review of Systems Status of ROS: Reports: 10 or more systems reviewed and unremarkable except as noted in History and below Narrative: Constitutional: No fevers, no weight gain or loss. Eyes: No discharge. No vision changes. HENT: No congestion, no sore throat, no ear pain. Cardiovascular: No palpitations. Respiratory: She reports a productive cough at times and has some increased shortness of breath. Gastrointestinal: No abdominal pain, no vomiting, no diarrhea. Genitourinary: No dysuria, no hematuria. Musculoskeletal: Normal range of motion. Skin: No rashes, no pruritis. Neurological: No dizziness, weakness, sensory change, speech change. Endo/Heme/Allergies: No bruising or bleeding. No polydipsia. Pysch: no suicidality, no anxiety, no insomnia. All other systems reviewed and are negative. PFSH PFSH Medical History COPD exacerbation ?J44.1 - Chronic obstructive pulmonary disease with (acute) exacerbation (ICD-10) History of hyperthyroidism ?Z86.39 - Personal history of other endocrine, nutritional and metabolic disease (ICD-10) AAA (abdominal aortic aneurysm) ?I71.40 - Abdominal aortic aneurysm, without rupture, unspecified (ICD-10) Elevated cholesterol ?E78.00 - Pure hypercholesterolemia, unspecified (ICD-10) Chronic low back pain ?M54.50 - Low back pain, unspecified (ICD-10) ?G89.29 - Other chronic pain (ICD-10) Insomnia ?G47.00 - Insomnia, unspecified (ICD-10) Anxiety ?F41.9 - Anxiety disorder, unspecified (ICD-10) Allergic rhinitis ?J30.9 - Allergic rhinitis, unspecified (ICD-10) Primary hypertension ?I10 - Essential (primary) hypertension (ICD-10) GERD (gastroesophageal reflux disease) ?K21.9 - Gastro-esophageal reflux disease without esophagitis (ICD-10) Severe chronic obstructive pulmonary disease ?J44.9 - Chronic obstructive pulmonary disease, unspecified (ICD-10) 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 - Yeny's granulomatosis without renal involvement (ICD-10) LVH (left ventricular hypertrophy) ?I51.7 - Cardiomegaly (ICD-10) Lung nodule ?R91.1 - Solitary pulmonary nodule (ICD-10) Smoker ?F17.200 - Nicotine dependence, unspecified, uncomplicated (ICD-10) Surgical History (Updated 12/09/23 @ 12:03 by Tavia Macdonald) History of back surgery (02/2022) ?Z98.890 - Other specified postprocedural states (ICD-10) History of lumbar laminectomy (1994) ?Z98.890 - Other specified postprocedural states (ICD-10) History of tubal ligation (1989) ?Z98.51 - Tubal ligation status (ICD-10) H/O sinus surgery (2016) ?Z98.890 - Other specified postprocedural states (ICD-10) S/P lobectomy of lung (09/01/22) ?Z90.2 - Acquired absence of lung [part of] (ICD-10) Family History (Updated 11/29/23 @ 20:01 by Mykel Perea MD) Father Heart disease Brother Heart disease Social History (Updated 11/29/23 @ 20:01 by Mykel Perea MD) Narrative: , 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, retail sales vitamin consultant, smoker, social ETOH What is your current living situation?: I presently have a place to live Problems where you live: no known problems Problems where you live details: NA In the past 12 months, utilities in danger of being shut off: no In past 12 months, lack of transportation kept you from medical appts, meetings, work, or getting things needed for daily living: no In the past 12 mos, have been you worried that your food would run out before you had money to buy more?: never true In the past 12 mos, the food you bought just didn't last and you didn't have money to buy more?: never true Smoking Status: Current every day smoker What tobacco products do you use: cigarettes Smoking packs per day: 1 Smoking cigarettes per day: 20.0 Years smoked: 20 Smoking pack-years: 20.00 Do you use any of these nicotine containing products: None Second hand tobacco smoke exposure: No How often do you have a drink containing alcohol: monthly or less How many standard drinks containing alcohol do you have on a typical day: 1 or 2 How often do you have six or more drinks on one occasion: Never AUDIT-C Alcohol total score: 1 Non-prescribed substance use: denies use Caffeine: Yes (soda, coffee) How often does anyone, including family, friends and others, physically hurt you : never How often does anyone, including family, friends and others, insult or talk down to you: never How often does anyone, including family, friends and others, threaten you with harm: never How often does anyone, including family, friends and others, scream or curse at you: never service: No Exam Narrative: Exam Narrative: Constitutional: Well-developed, well-nourished, no acute distress. HEENT: Normocephalic, atraumatic. Neck: Normal range of motion. Nontender. Supple. Heart: Regular. No murmurs. Borderline tachycardia. Intact distal pulses. Lungs: Clear to auscultation. No chest discomfort. No wheezes, rhonchi, or rales. Abdomen: Normal bowel sounds. Nontender. No rebound tenderness. Genitalia: Deferred. Back: No midline tenderness. Normal range of motion. Extremities: Normal range of motion. No injury. Skin: Intact. No rash. Warm. No erythema or pallor. Neurologic: No altered sensation. No weakness. Alert and oriented. Psychiatric: No suicidality. No anxiety or depression. No insomnia. Nursing notes and vitals signs are reviewed. Const: Vital Signs, click to edit/add: Vital Signs - 24 hr 10/27/24 17:01 10/27/24 19:01 Temperature 99.2 F Pulse Rate [Pulse Oximeter] 109 H 84 Respiratory Rate 20 22 Blood Pressure [Ri ght Upper Arm] 143/83 H 128/95 H Pulse Oximetry 91 92 Oxygen Delivery Me thod Room Air Room Air Course Vital Signs Vital signs: Initial Vital Signs Temperature 99.2 F 10/27/24 17:01 Temperature Source Temporal Artery Scan 10/27/24 17:01 Pulse Rate 109 H 10/27/24 17:01 Respiratory Rate 20 10/27/24 17:01 Blood Pressure 143/83 H 10/27/24 17:01 Blood Pressure Mean 103 10/27/24 17:01 Pulse Oximetry 91 10/27/24 17:01 Oxygen Delivery Method Room Air 10/27/24 17:01 Vital Signs Temperature 99.2 F 10/27/24 17:01 Pulse Rate 109 H 10/27/24 17:01 Respiratory Rate 20 10/27/24 17:01 Blood Pressure 143/83 H 10/27/24 17:01 Pulse Oximetry 91 10/27/24 17:01 Oxygen Delivery Method Room Air 10/27/24 17:01 Temperature 99.2 F 10/27/24 17:01 Pulse Rate 84 10/27/24 19:01 Respiratory Rate 22 10/27/24 19:01 Blood Pressure 128/95 H 10/27/24 19:01 Pulse Oximetry 92 10/27/24 19:01 Oxygen Delivery Method Room Air 10/27/24 19:01 Medical Decision Making MDM Narrative Medical decision making narrative: This patient comes in reporting cough and respiratory infection symptoms as described above. She does have a history of lung cancer and continues to smoke. She arrives here with normal vital signs. Initially her heart rate was a bit increased but at rest it is in normal range as are her other vital signs. A CT scan of her chest is obtained and shows no sign of infection however there is a new nodule in the left upper lobe that is suspicious for malignancy. Radiologist recommends a repeat CT scan within 3 months. I did inform the patient of this finding and she does have a follow-up appointment with her primary physician in fiber 6 days. Labs are acquired also in these returned with reassuring results. The patient wishes to return home before nasal pharyngeal swab results have returned. I did decide to treat her with a steroid along with antibiotic and cough and pain medicine. The patient received [facility] prescriptions for prednisone and Tylenol 3. Doxycycline was not available in [facility] machine so she will pick that up at her pharmacy. She did receive oral doses of doxycycline and dexamethasone here. Lab Data Labs: Lab Results 10/27/24 10/27/24 Range/Units 17:22 17:32 WBC 7.84 (4.50-11.00) K/uL RBC 4.24 (4.00-5.20) m/uL Hgb 15.0 (12.0-16.0) gm/dL Hct 44.2 (33.0-51.0) % MCV 104 H (80-100) fL MCH 35 H (26-34) pg MCHC 34 (32-36) gm/dL RDW Coeff of Breonna 12.8 (11.5-15.5) % Plt Count 259 (140-440) K/uL Neut % (Auto) 53.6 (42.0-72.0) % Lymph % (Auto) 33.0 (20-44) % Mcdowell % (Auto) 8.8 (0.0-11.0) % Eos % (Auto) 3.1 (0.0-7.0) % Baso % (Auto) 1.4 (0.0-3.0) % Neut # (Auto) 4.20 (1.7-7.0) K/uL Lymph # (Auto) 2.59 (0.90-2.90) K/uL Mcdowell # (Auto) 0.70 (0.00-0.90) K/UL Eos # (Auto) 0.24 (0.00-0.50) K/uL Baso # (Auto) 0.11 (0.00-0.30) K/uL Abs Immat Gran (auto) 0.01 (0.00-0.30) K/uL Imm/Tot Granulo (auto) 0.1 % Sodium 135 (135-149) mmol/L Potassium 3.5 L (3.6-5.1) mmol/L Chloride 97 (96-114) mmol/L Carbon Dioxide 29 (20-32) mmol/L Anion Gap 9 (7-15) mEq/L BUN 31 H (7-30) mg/dL Creatinine 1.1 (0.5-1.5) mg/dL Estimated Creat Clear 53.23 Estimated GFR 58 ml/min Glucose 98 (60-115) mg/dL Calcium 10.8 H (8.4-10.6) mg/dL POC Troponin I 0.00 L (0.01-0.04) ng/ml Imaging Data CT scan - chest: Radiologist's impression: 1. New left upper lobe apical 0.6 cm spiculated pulmonary nodule, concerning for malignancy. This can be further evaluated with a PET-CT, tissue sampling, or a follow-up CT chest in 3 months. 2. Additional left upper lobe 0.3 cm pulmonary nodule at the site of a previously visualized consolidation, which could be postinfectious in etiology, though is indeterminate. Attention on follow-up. 3. No other acute findings in the chest. ECG Data Attestation: I personally reviewed and interpreted this ECG as follows: Interpretation: Normal sinus rhythm. Rate is 95 beats per minute. There are no ST or T-wave abnormalities. Discharge Plan Discharge Clinical Impression: Acute lower respiratory infection Patient Disposition: Home, Self-Care Condition: Stable Additional Instructions: Take medication as prescribed. Smoking cessation is advised. Follow up with primary physician as scheduled or return if worsening. Prescriptions: No Action fluticasone furoate-vilanterol [Breo Ellipta] 200-25 mcg/dose blister with device 1 ea INHALATION DAILY Qty: 90 3RF guaifenesin [Mucinex] 600 mg tablet extended release 12hr 1,200 mg PO BID Qty: 360 3RF hydrochlorothiazide 25 mg tablet 25 mg PO DAILY Qty: 90 3RF lansoprazole 30 mg capsule,delayed release(DR/EC) 30 mg PO BID Qty: 180 3RF methocarbamol 750 mg tablet 750 mg PO QHS PRN (Reason: spasm) Qty: 90 3RF Spiriva Respimat 2.5 mcg/actuation mist 2 puff INHALATION DAILY Qty: 12 3RF cefdinir 300 mg capsule 300 mg PO BID Qty: 14 0RF prednisone 20 mg tablet 20 mg PO BID Qty: 10 0RF ipratropium-albuterol 0.5 mg-3 mg(2.5 mg base)/3 mL solution for nebulization 3 ml INHALATION Q6H PRN (Reason: cough) Qty: 360 5RF levalbuterol tartrate [Xopenex HFA] 45 mcg/actuation HFA aerosol inhaler 2 inh inhalation Q6H PRN (Reason: shortness of breath or wheezing) Qty: 45 3RF Follow Up/Referrals: Mykel Perea MD [Primary Care Provider] - Stand Alone Forms: [employer] Info Instructions
[2024-10-27 17:43] LABS: Basophils Absolute Auto 0.11 K/uL (0.00-0.30); Basophils Percent Auto 1.4 % (0.0-3.0); Eosinophils Absolute Auto 0.24 K/uL (0.00-0.50); Eosinophils Percent Auto 3.1 % (0.0-7.0); Hematocrit* 44.2 % (33.0-51.0); Immature Granulocytes Abs Auto 0.01 K/uL (0.00-0.30); Immature Granulocytes Pct Auto 0.1 %; Lymphocytes Absolute Auto 2.59 K/uL (0.90-2.90); Mean Corpuscular HGB Conc 34 gm/dL (32-36); Mean Corpuscular Hemoglobin 35 pg (26-34); Mean Corpuscular Volume 104 fL (80-100); Monocytes Percent Auto 8.8 % (0.0-11.0); Neutrophils Percent Auto 53.6 % (42.0-72.0); Platelet Count* 259 K/uL (140-440); RDW Coefficient of Variation % 12.8 % (11.5-15.5); Red Blood Count* 4.24 m/uL (4.00-5.20); White Blood Count* 7.84 K/uL (4.50-11.00)
[2024-10-27 17:47] LABS: Slide Review Reflex No
[2024-10-27 17:54] LABS: Chloride* 97 mmol/L (96-114); Potassium* 3.5 mmol/L (3.6-5.1); Sodium* 135 mmol/L (135-149)
[2024-10-27 17:57] LABS: Anion Gap 9 mEq/L (7-15); Blood Urea Nitrogen* 31 mg/dL (7-30); Calcium* 10.8 mg/dL (8.4-10.6); Carbon Dioxide* 29 mmol/L (20-32); Creatinine* 1.1 mg/dL (0.5-1.5); Est. Creatinine Clearance* 53.23; Estimated Glomerular Filt Rate 58 ml/min; Glucose* 98 mg/dL (60-115)
--- OUTSIDE RECORDS SUMMARY | 2024-10-27 18:50 | XMS_ITS | Encounter Summary ---
Author Organization [employer] Address [address] [address] Support Name Relationship Address Phone Juan Dan Emergency Contact Unknown [phone] David Dan Emergency Contact 11/09 Care Team Providers Care Stem Threshing Machine Operator Name Role Phone Nazanin Meeks MD Primary Care Provid er Encounter Details Date Type Department Care Team (Late st Contact Info) Description 03/31/2020 Refill Order Specialty [facility] 401 [facility] [place] [address] Nazanin Meeks MD [address] [place] [address] Social History Tobacco Use Types Packs/Day Years [...] COVID19 06/01/2020 06/01/2020 06/04/2020 11:4 2 PM COOK SOUP R/O COVID19 09/09/2022 09/09/2022 09/09/2022 9:18 AM COOK SOUP documented as of this encounter Care Teams Stem Threshing Machine Operator Relationship Specialty Start Date End Date Nazanin Meeks MD [address] [place] [address] PCP - General Family Practice 08/04/24 documented as of this encounter
--- OUTSIDE RECORDS SUMMARY | 2024-10-27 18:50 | XMS_ITS | Encounter Summary ---
Author Organization [employer] Address [address] [address] Support Name Relationship Address Phone Juan Dan Emergency Contact Unknown [phone] David Dan Emergency Contact 11/09 Care Team Providers Care Hospice Art Therapist Name Role Phone Nazanin Meeks MD Primary Care Provid er Encounter Details Date Type Department Care Team (Late st Contact Info) Description 04/23/2016 Correspondence External to External, [place] [address] PROVIDER REMITTANCE ADVICE [facility] Social History Tobacco Use Types Packs/Day Years [...] COVID19 06/01/2020 06/01/2020 06/04/2020 11:4 2 PM SOURCING SPECIALIST R/O COVID19 09/09/2022 09/09/2022 09/09/2022 9:18 AM SOURCING SPECIALIST documented as of this encounter Care Teams Hospice Art Therapist Relationship Specialty Start Date End Date Nazanin Meeks MD [address] [address] PCP - General Family Practice 08/04/24 documented as of this encounter
--- OUTSIDE RECORDS SUMMARY | 2024-10-27 18:50 | XMS_ITS | Encounter Summary ---
Author Organization [employer] Address [address] [place], [place] [address]. [place] [address] Care Team Providers Care Litharge Mill Operator Name Role Phone Tavia France MD Primary Care Provider [phone] Katerina Suggs APRN [facility] Primary Care Pro vider Reason for Referral * Consultation - Closed Specialty Diagnoses / Procedures Referred By Matthew anderson Referred To Contact Diagnoses Chronic maxillary sinusitis Tavia France MD [facility] [address] [address] Phone: tel: [facility] OTOLARYNGOLOGY Referral ID Status Reason Start Date Expiration Date Visits Re quested Visits Authorized [id number] Closed 09/02/2013 03/01/2014 1 1 Comments Your provider has referred you to: [facility]: [facility], [facility] Adult Ear, Nose, Throat (ENT) [phone], N: [facility] [phone] and N: N: [facility] [phone]/ fax [phone] Please be aware that coverage of these services is subject to the terms and limitations of your health insurance plan. Call member services at your health plan with any benefit or coverage questions. Please bring the following to your appointment: >> Any x-rays, CTs or MRIs which have been performed. Contact the facility where they were done to arrange for continuous pickling line pickler helper prior to your scheduled appointment. Any new CT, MRI or other procedures ordered by your specialist must be performed at a [facility] facility or coordinated by your clinic's referral office. >> List of current medications >> This referral request >> Any documents/labs given to you for this referral OMINER Reason for Visit * Reason Onset Date Comments CT Results 09/01/2013 Encounter Details Date Type Department Care Team (Late st Contact Info) Description 09/01/2013 [facility] Medical Advice [address] [address] Tavia France MD [facility] [address] [place] [address] CT Results Social History Tobacco Use Types Packs/Day Years Used Date Smoking Tobacco: Every Day Cigarettes 1 23 Alcohol Use Standard Drinks/Week Comments Yes 0 (1 standard drink = 0.6 oz pur e alcohol) very rarely Comments No Sex and Gender Information Value Date Recorded Sex Assigned at Not on file Legal Sex Female 3:06 AM KALSOMINER Gender Identity Not on file Sexual Orientation Not on file 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 OMINER * Telephone Encounter - Deidre Garcia - 09/02/2013 2:44 PM CST HI LP-pt still having ongoing sinus sx per her Plain Vanill[employer] message. Can you address? Deidre Garcia RN OMINER * Telephone Encounter - Tavia France MD - 09/02/2013 2:28 PM KALSOMINER I messaged pt as below. -Tavia France M.D. OMINER * Telephone Encounter - Deidre Garcia - 09/02/2013 2:16 PM CST Results are in. Deidre Garcia RN OMINER * Telephone Encounter - Remington Portillo - 09/01/2013 5:31 PM CST Noted. Will delay this message to pop-up tomorrow at noon. Thanks Remington Portillo RN OMINER * Telephone Encounter - Tavia France MD - 09/01/2013 5:24 PM KALSOMINER Strange! Thanks for looking into this. I'll [...] again? Thanks so much. -Tavia France M.D. OMINER * Telephone Encounter - Shell Carr - 09/01/2013 4:44 PM CST Spoke iwht the CT lab and they are looking into why the films haven't been read and dictated yet. They said they will have done tomorrow. Shell Carr RN OMINER * Telephone Encounter - Remington Portillo - 09/01/2013 4:[address] who states staff in the morning would have to get that done. Results will be done sandra tomorrow morning. I've messaged Pt as below. Remington Portillo RN OMINER * Telephone Encounter - Tavia France MD - 09/01/2013 4:26 PM KALSOMINER No, NOW that is seeming weird, should have them by now. I'm not in clinic for the rest of the day. Could you please call radiology and find out why there is no report yet, or get me a number so I cantry to call? Thanks. - Tavia France M.D. OMINER * Telephone Encounter - Shell Carr - 09/01/2013 3:57 PM CST Not sure why these ct results are taking so long Any ideas? Thanks! TOBI Goff Triage Nurse OMINER documented in this encounter Plan of Treatment Scheduled Referrals Name Type Priority Associated Diagnoses Orde r Schedule OTOLARYNGOLOGY REFERRAL Referral Routine Chronic maxillary sinusitis Ordered: 09/02/2013 documented as of this encounter Visit Diagnoses Diagnosis Chronic maxillary sinusitis- Primary documented in this encounter Care Teams Litharge Mill Operator Relationship Specialty Start Date End Date Tavia France MD [facility] [address] [address] PCP - General Family Practice 08/30/13 03/15/14 Katerina Suggs APRN OUTSIDE REPAIRER SPECIAL [facility] [address] [address] PCP - General Nurse Practitioner - Family 03/16/14 documented as of this encounter
--- OUTSIDE RECORDS SUMMARY | 2024-10-27 18:50 | XMS_ITS | Encounter Summary ---
Author Organization [facility] Address [address], [place] [address] Support Name Relationship Address Phone Juan Dan Emergency Contact Unknown [phone] David Dan Emergency Contact 11/09 Care Team Providers Care Investigation Clerk Name Role Phone Nazanin Meeks MD Primary Care Provid er Encounter Details Date Type Department Care Team (Late st Contact Info) Description 05/05/2012 Consent for Procedure/Treatme [facility] Department INFORMED CONSENT RECORD Social History [...] as of this encounter Progress Notes * [facility], PROVIDER - 05/05/2012 12:00 AM CDT documented in this encounter Plan of Treatment Not on file documented as of this encounter Visit Diagnoses Not on filedocumented in this encounter Additional Health Concerns Infection Onset Date Last Indicated Resolved Time R/O COVID19 03/12/2020 03/12/2020 03/15/2020 2:49 PM CDT R/O COVID19 06/01/2020 06/01/2020 06/04/2020 11:4 2 PM TEST ENGINEERING INTERN R/O COVID19 09/09/2022 09/09/2022 09/09/2022 9:18 AM TEST ENGINEERING INTERN documented as of this encounter Care Teams Investigation Clerk Relationship Specialty Start Date End Date Nazanin Meeks MD [address] [place] [address] PCP - General Family Practice 08/04/24 documented as of this encounter
--- OUTSIDE RECORDS SUMMARY | 2024-10-27 18:50 | XMS_ITS | Encounter Summary ---
Author Organization [employer] Address [address] [address] Support Name Relationship Address Phone Juan Dan Emergency Contact Unknown [phone] David Dan Emergency Contact 11/09 Care Team Providers Care Rn Wellness Name Role Phone Nazanin Meeks MD Primary Care Provid er Encounter Details Date Type Department Care Team (Late st Contact Info) Description 11/15/2015 [facility] [address] Otolaryngology [address] [place] [address] Christophe Giles MD [address] [place] [address] FMLA Social History Tobacco Use [...] COVID19 06/01/2020 06/01/2020 06/04/2020 11:4 2 PM RIPENING ROOM OPERATOR R/O COVID19 09/09/2022 09/09/2022 09/09/2022 9:18 AM RIPENING ROOM OPERATOR documented as of this encounter Care Teams Rn Wellness Relationship Specialty Start Date End Date Nazanin Meeks MD [address] [place] [address] PCP - General Family Practice 08/04/24 documented as of this encounter
--- OUTSIDE RECORDS SUMMARY | 2024-10-27 18:50 | XMS_ITS | Encounter Summary ---
Author Organization [employer] Address [address] [address] Support Name Relationship Address Phone Juan Dan Emergency Contact Unknown [phone] David Dan Emergency Contact 11/09 Care Team Providers Care Produce Department Manager Name Role Phone Nazanin Meeks MD Primary Care Provid er Encounter Details Date Type Department Care Team (Late st Contact Info) Description 07/01/2021 Refill Order Specialty [facility] 401 [facility] [address] [place] [address] Neema Garcia MD Social History Tobacco Use [...] as of this encounter Nursing Notes * Tavai Sommer - 07/02/2021 12:57 PM CST Letter Sent to Patient. Tavia Sommer 07/02/2021, 12:57 PM ODONTIC TREATMENT COORDINATOR documented in this encounter Plan of Treatment Not on file documented as of this encounter Visit Diagnoses Diagnosis Encounter for long-term (current) use of medications- Primary Encounter for long-term (current) use of other medications documented in this encounter Additional Health Concerns Infection Onset Date Last Indicated Resolved Time R/O COVID19 09/09/2022 09/09/2022 09/09/2022 9:18 AM ORTHODONTIC TREATMENT COORDINATOR documented as of this encounter Care Teams Produce Department Manager Relationship Specialty Start Date End Date Nazanin Meeks MD [address] [facility] [place] [place] [address] PCP - General Family Practice 08/04/24 documented as of this encounter
--- OUTSIDE RECORDS SUMMARY | 2024-10-27 18:50 | XMS_ITS | Encounter Summary ---
Author Organization [employer] Address [address] [address] Support Name Relationship Address Phone Juan Dan Emergency Contact Unknown [phone] David Dan Emergency Contact 11/09 Care Team Providers Care Short Piece Handler Name Role Phone Nazanin Meeks MD Primary Care Provid er Encounter Details Date Type Department Care Team (Late st Contact Info) Description 11/30/2015 Consent for Procedure/Treatme nt [facility] Department INFORMED CONSENT RECORD Social History [...] COVID19 06/01/2020 06/01/2020 06/04/2020 11:4 2 PM ADVERTISING SALES MANAGER R/O COVID19 09/09/2022 09/09/2022 09/09/2022 9:18 AM ADVERTISING SALES MANAGER documented as of this encounter Care Teams Short Piece Handler Relationship Specialty Start Date End Date Nazanin Meeks MD [address] [place] [address] PCP - General Family Practice 08/04/24 documented as of this encounter
--- OUTSIDE RECORDS SUMMARY | 2024-10-27 18:50 | XMS_ITS | Clinical Summary ---
Author Organization [employer] Address [address] [place], [place] [address]. 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
--- OUTSIDE RECORDS SUMMARY | 2024-10-27 18:50 | XMS_ITS | Clinical Summary ---
Author Organization [facility] Address [address] [place] [address] Support Name Relationship Address Phone Juan Dan Emergency Contact Unknown [phone] David Dan Emergency Contact 11/09 Care Team Providers Care Fiction And Nonfiction Author Name Role Phone Radha Meeks MD Primary Care Provid er Source Comments You are receiving this document as you are listed as the primary care provider,follow-up provider, or the patient has been referred to you for consultation.This is in compliance with the Medicare and[facility] EHR Incentive Program,which states Providers who transition their patient to another setting of careor provider of care or refers their patient to another provider of care shouldprovide summary care record for each transition of care or referral. [facility] Allerg[facility] Active Allergy Reactions Criticality Noted Date Comments Sulfa Antibiotics Other, see comments 2 itching Azithromycin Gastrointestinal 05/03/2012 Medications Ibuprofen 200 MG capsule Take 1 Capsule by mouth every 6 hours as needed. Active sennosides-docu sate sodium (SENOKOT S) 8.6-50 MG per tabletIndicatio ns:Constipation Take 1 Tablet by mouth two times a day. Indications: Constipation 40 Tablet 09/05/2022 11:10 AM PILOT CONTROL OPERATOR 3 Active nicotine (NICODERM CQ) 7 MG/24HR patch Apply 1 Patch to skin daily. Remove old patch prior to new patch application Do not start before September 06, 2022. 14 Each 09/05/2022 11:10 AM PILOT CONTROL OPERATOR 3 Active Additional Information Patient not taking.Reported on 07/08/2023 ondansetron (ZOFRAN) 4 MG tabletIndicatio ns:Postoperativ e Nausea and Vomiting Take 1 Tablet (4 mg) by mouth every 8 hours as needed for Nausea. Indications: Nausea and Vomiting Following an Operation 20 Tablet 09/05/2022 11:10 AM PILOT CONTROL OPERATOR 3 Active ipratropium-alb uterol (DUONEB) 0.5-2.5 (3) [...] L5-S1 Acute sinusitis 03/23/2012 12/12/2015 Overview (04/26/2015): [facility] Encounter for screening for cardiovascular disorders 12/02/2009 03/05/2022 Encounters Date Type Department Care Team Description 08/07/2024 Refill [facility] [address] [place] [address] Radha Meeks MD Refill (hydroCHLOROthiazide (ORETIC) 25 MG tablet [Pharmacy Med Name: HYDROCHLOROTHIAZIDE 25MG TABLETS]) 08/02/2024 Refill [facility] [address] [place] [address] Radha Meeks MD Refill (hydroCHLOROthiazide (ORETIC) 25 MG tablet [Pharmacy Med Name: HYDROCHLOROTHIAZIDE 25MG TABLETS]) 07/29/2024 Refill [facility] [address] [place] [address] Radha Meeks MD Refill (hydroCHLOROthiazide (ORETIC) 25 MG tablet [Pharmacy Med Name: HYDROCHLOROTHIAZIDE 25MG TABLETS]) from Last 3 Months Immunizations Immunization Administration Dates Next Due Flu Vac (3+ yrs) 05/17/2012 Influenza IIV4 (Quadrivalent) 0.5mL (21237) 05/28 PPSV23 (Pneumovax) 05/17/2012 Pfizer Monovalent 12+ [...] Comments Blood Pressure 126/84 07/08/2023 1:39 PM PILOT CONTROL OPERATOR Pulse 85 07/08/2023 1:39 PM PILOT CONTROL OPERATOR Temperature 36 C (96.8 F) 07/08/2023 1:39 PM PILOT CONTROL OPERATOR Respiratory Rate 16 07/08/2023 1:39 PM PILOT CONTROL OPERATOR Oxygen Saturation 93% 07/08/2023 1:39 PM PILOT CONTROL OPERATOR Inhaled Oxygen Concentration - - Weight 68.9 kg (151 lb 12.8 oz) 07/08/2023 1:39 PM PILOT CONTROL OPERATOR Height 172.7 cm (5' 8) 07/08/2023 1:39 PM PILOT CONTROL OPERATOR Body Mass Index 23.08 07/08/2023 1:39 PM PILOT CONTROL OPERATOR Plan of Treatment Health Maintenance Due Date [...] this topic Medical Devices Implanted Type Area Licensed Plumber Device Identifier Shelf Expiration Date Model / Serial / Lot Splint Nasal [address] - [id number] Implanted:Qty: 1 on 11/30/2015 by Christophe Giles MD at [facility] DEVICE N/A: NOSE [employer] [id number] / / Procedures Procedure Name Priority Date/Time Associated Diagnosis Comments CT CHEST WO IV CONT LUNG SCREENING Routine 09/30/2023 5:30 PM PILOT CONTROL OPERATOR Tobacco use disorder (HRC) LIPID PANEL & [...] IV Cont Lung Screening (09/30/2023 5:30 PM PILOT CONTROL OPERATOR) Anatomical Region Laterality Modality Chest, Lung Computed Tomogra phy 09/30/2023 5:30 PM PILOT CONTROL OPERATOR Narrative 10/01/2023 8:14 AM PILOT CONTROL OPERATOR EXAM: LOW DOSE LUNG CANCER SCREENING CT [...] - 199 mg/dL 12/22/2022 3:26 AM [facility] Triglyceride 85 <=149 mg/dL 12/22/2022 3:26 AM [facility] HDL Cholesterol 59 >=40 mg/dL 12/22/2022 3:26 AM [facility] LDL, Calculated 186(H) <130 mg/dL 12/22/2022 3:26 AM T [facility] Non HDL Chol, Calculated 203(H) <=159 mg/dL 12/22/2022 3:26 AM [facility] Cholesterol/HDL Ratio 4.4 12/22/2022 3:26 AM T [facility] Hours Fasting Unknown 12/22/2022 3:26 AM T [facility] Blood Venipuncture / Unknown 12/21/2022 1:52 PM CDT 12/21/2022 1:52 PM CDT us Radha Meeks MD LAB_1 Aurelia yusuf Result Performing Organization Address [facility]/ZIP Co de Phone Number [facility] [address] [address], [facility] [phone] [facility] [address] [place] [address], [facility] [phone] * HIV 1/2 Ag/Ab 4th Generation (02/10/2020 3:03 PM CDT) HIV 1/2 Antigen/Anti body (4th generation) Negative (Non Reactive) Negative (Non Reactive) 02/10/2020 9:[address] [facility] Comment:HIV-1 p24 Antigen an d HIV-1/HIV-2 Antibody not detected Blood Venipuncture / Unknown 02/10/2020 3:03 PM CDT 02/10/2020 3:03 PM CDT us Radha Meeks MD LAB_1 Aurelia yusuf Result Performing Organization Address [facility] Co de Phone Number [facility] [address] [place] [address], [facility] [phone] * Hepatitis C Antibody, with Reflex (02/10/2020 3:03 PM CDT) Hepatitis C Antibody Negative (Non Reactive) Negative (Non Reactive) 02/10/2020 9:11 PM CDT [facility] Comment:Antibodies to HCV no t detected. Does not exclude the possiblity of exposure to HCV. Blood Venipuncture / Unknown 02/10/2020 3:03 PM CDT 02/10/2020 3:03 PM CDT us Radha Meeks MD LAB_1 Aurelia yusuf Result Performing Organization Address City/[facility]/ZIP Co de Phone Number [facility] [address] [place], [place] [address] [phone] * Pap Test, Routine (03/24/2018 3:30 PM CDT) Cytology, Pap (NOTE) [facility] Messenger Cytology Report Patient Name: NUSRAT DAN Taken: [...] Menopausal Microscopic Description Microscopic examination is performed. [facility] Department of Pathology [address] [place] [id number] [place] [address] LABORATORIES 03/24/2018 3:30 PM CDT 03/25/2018 8:30 AM CDT us Radha Meeks MD LAB_1 Aurelia yusuf Result [facility] [phone] from Last 3 Months or Most Recently Relevant to Health Maintenance Insurance [facility] Advance Directives * Full Code (Latest Code Status on File) Date Activated Date Inactivated Comments 03/26/2022 1:10 PM 03/26/2022 5:41 PM * Full Code Date Activated Date Inactivated Comments 05/05/2012 7:48 AM 05/06/2012 7:27 AM Care Teams Fiction And Nonfiction Author Relationship Specialty Start Date End Date Radha Meeks MD [address] [place] [address] PCP - General Family Practice 08/04/24
--- OUTSIDE RECORDS SUMMARY | 2024-10-27 18:50 | XMS_ITS | Encounter Summary ---
Author Organization [facility] Address [address] [place], [place] [address]. [place] [address] Care Team Providers Care Gun Profiler Name Role Phone Tavia France MD Primary Care Provider [phone] Katerina Suggs APRN [facility] Primary Care Pro vider Reason for Visit * Reason Onset Date Comments CT Results 08/30/[address] resu lts from 08/29/13 Encounter Details Date Type Department Care Team (Late st Contact Info) Description 08/30/[address] [address] Tavia France MD [address] [id number] CT Results (requests CT results from 08/29/13) Social History Tobacco Use Types Packs/Day Years Used Date Smoking Tobacco: Every Day Cigarettes 1 23 Alcohol Use Standard Drinks/Week Comments Yes 0 (1 standard drink = 0.6 oz pur e alcohol) very rarely Comments No Sex and Gender Information Value Date Recorded Sex Assigned at Not on file Legal Sex Female 3:06 AM COVERSTITCH ELASTIC ATTACHER Gender Identity Not on file Sexual Orientation Not on file 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 She acknowledged understanding. RSTITCH ELASTIC ATTACHER * Telephone Encounter - Tavia France MD - 08/30/2013 11:01 AM COVERSTITCH ELASTIC ATTACHER The results can take a day or two to come to my inbasket, then another few days to get to her, unless there is something medically urgent about the results, in which case I get a call from the radiologist and would call her. She should have them by the end of the week. - LP RSTITCH ELASTIC ATTACHER * Telephone Encounter - Shell Carr - 08/30/2013 10:17 AM CST Had done at [facility] CT results not done yet. Pt wanting results. i will call and see what the hold up is. Pt aware. Shell Carr RN RSTITCH ELASTIC ATTACHER * Telephone Encounter - Dejah Hartmann - [...] and location of the patients Preferred pharmacy: [facility] RSTITCH ELASTIC ATTACHER documented in this encounter Plan of Treatment Not on file documented as of this encounter Visit Diagnoses Not on filedocumented in this encounter Care Teams Gun Profiler Relationship Specialty Start Date End Date Tavia France MD [facility] [address] [facility] [address] [place] [address] PCP - General Family Practice 08/30/13 03/15/14 Katerina Suggs APRN CNP [facility] [address] [facility] [address] [place] [address] PCP - General Nurse Practitioner - Family 03/16/14 documented as of this encounter
--- OUTSIDE RECORDS SUMMARY | 2024-10-27 18:50 | XMS_ITS | Encounter Summary ---
Author Organization [employer] Address [address], [place] [address] Support Name Relationship Address Phone Juan Dan Emergency Contact Unknown [phone] David Dan Emergency Contact 11/09 Care Team Providers Care Hard Candy Batch Mixer Name Role Phone Nazanin Meeks MD Primary Care Provid er Encounter Details Date Type Department Care Team (Late st Contact Info) Description 03/17/2018 Correspondence [facility] [address] [place] [id number] Radiology, Provider MRI SAFETY SHEET AND [...] COVID19 06/01/2020 06/01/2020 06/04/2020 11:4 2 PM MATERIAL PROCESSOR R/O COVID19 09/09/2022 09/09/2022 09/09/2022 9:18 AM MATERIAL PROCESSOR documented as of this encounter Care Teams Hard Candy Batch Mixer Relationship Specialty Start Date End Date Nazanin Meeks MD [address] [place] [address] PCP - General Family Practice 08/04/24 documented as of this encounter
--- OUTSIDE RECORDS SUMMARY | 2024-10-27 18:50 | XMS_ITS | Clinical Summary ---
Author Organization [employer] [facility] Address [address] [place] [id number] Care Team Providers Care Cloth Examiner Machine Name Role Phone Yamilet Mistry MD Primary Care Provider [phone] Allergies Active Allergy Reactions Criticality Noted Date [...] on file Legal Sex Female 7:38 AM WEB MARKETING STRATEGIST Gender Identity Not on file Sexual Orientation Not on file Obstetrics History Last Filed Vital Signs Vital Sign Reading Time Taken Comments Blood Pressure 143/91 08/28/2020 2:59 PM WEB MARKETING STRATEGIST Pulse 90 08/28/2020 2:59 PM WEB MARKETING STRATEGIST Temperature 36.8 C (98.3 F) 08/28/2020 2:59 PM WEB MARKETING STRATEGIST Respiratory Rate 18 08/28/2020 2:59 PM WEB MARKETING STRATEGIST Oxygen Saturation 94% 08/28/2020 2:59 PM WEB MARKETING STRATEGIST Inhaled Oxygen Concentration - - Weight 68 kg (150 lb) 08/28/2020 2:59 PM WEB MARKETING STRATEGIST Height 172.7 cm (5' 8) 08/28/2020 2:59 PM WEB MARKETING STRATEGIST Body Mass Index 22.81 08/28/2020 2:59 PM WEB MARKETING STRATEGIST Plan of Treatment Health Maintenance Due Date [...] Most Recently Relevant to Health Maintenance Insurance [facility] Care Teams Cloth Examiner Machine Relationship Specialty Start Date End Date Yamilet Mistry MD [address] [place] [address] PCP - General 11/06/11
--- OUTSIDE RECORDS SUMMARY | 2024-10-27 18:51 | XMS_ITS | Encounter Summary ---
Author Organization [employer] Address [address], [place] [address] Support Name Relationship Address Phone Juan Dan Emergency Contact Unknown [phone] David Dan Emergency Contact 11/09 Care Team Providers Care Casino Accountant Name Role Phone Nazanin Meeks MD Primary Care Provid er Encounter Details Date Type Department Care Team (Late st Contact Info) Description 08/30/2019 Refill Order [facility] [address] [place] [address] Neema Garcia MD Social History Tobacco Use [...] COVID19 06/01/2020 06/01/2020 06/04/2020 11:4 2 PM TECHNICAL DOCUMENT WRITER R/O COVID19 09/09/2022 09/09/2022 09/09/2022 9:18 AM TECHNICAL DOCUMENT WRITER documented as of this encounter Care Teams Casino Accountant Relationship Specialty Start Date End Date Nazanin Meeks MD [address] [place] [address] PCP - General Family Practice 08/04/24 documented as of this encounter
--- OUTSIDE RECORDS SUMMARY | 2024-10-27 18:51 | XMS_ITS | Encounter Summary ---
Author Organization [email or web address] Address [address], [place] [address] Support Name Relationship Address Phone Juan Dan Emergency Contact Unknown David Dan Emergency Contact 11/09 Care Team Providers Care Writing Manager Name Role Phone Nazanin Meeks MD Primary Care Provid er Encounter Details Date Type Department Care Team (Late st Contact Info) Description 11/14/2019 Refill Order [facility] [address] 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
[2024-10-27 19:01] VITALS: BP 128/95; PULSE 84; RESP 22; O2SAT 92
[2024-10-27] MEDS: dexAMETHasone 10 MG/ML inj PO (19:18)
[2024-10-27] MEDS: DOXYCYCLINE HYCLATE 100 MG PO (19:19)
[2024-10-27 19:20] LABS: PCR FLU A Negative PCR FLU A (Negative); PCR FLU B Negative PCR FLU B (Negative); PCR RSV Negative PCR RSV (Negative); SARS PCR* Negative SARS-CoV-2 (Negative)
== END 2024-10-27 19:33 | disposition home or self-care (01) ==
PROVIDERS: Emergency Provider Emergency Medicine Emergency Medical Services; PCP Family Medicine
DX: J22 Unspecified acute lower respiratory infection (principal)
CPT/HCPCS: 36415; 71250; 80048; 84484; 85025; 87637; 93005; 99284; 99285; A9270; J1100

== ENCOUNTER 2024-11-17 14:13 | Outpatient (CLI) | payer BC, SELFPAY ==
--- NOTE | 2024-11-17 14:30 | CRLHL7_ITS ---
For Patients: As a result of the Century Cures Act, medical imaging exams and procedure reports are released immediately into your electronic medical record. You may view this report before your referring provider. If you have questions, please contact your health care provider. EXAM: FDG PET-CT Skull Base to Thighs CLINICAL INFORMATION: 59-year-old woman with history of lung nodule. PET CT ordered for additional characterization. TECHNIQUE: Radiopharmaceutical: 18F-fluorodeoxyglucose (18F-FDG) Dose: 12.19 milliCurie. Blood glucose: 89 mg/dL. Image acquisition: At approximately 60 minutes following IV tracer administration via a right antecubital vein, positron emission tomography was performed from the skull base through the mid thigh. Non-contrast low-dose helical CT imaging was performed over the same range without breath-hold for attenuation correction of PET images and anatomic correlation; it is neither sufficient, nor should it be substituted for diagnostic purposes. COMPARISON: CT chest angiogram 11/16/2023. CT chest 10/27/2024. FINDINGS: Mediastinal blood pool FDG uptake: SUVMax 2.4 (image 121 benign) Liver background parenchymal FDG uptake: SUVMax 3.0 (image 167) HEAD AND NECK: Moderate focal uptake associated with a periapical lucency in the left 1st maxillary molar tooth SUVMax 7.5 (image 42). Trace layering fluid in the bilateral maxillary sinuses. CHEST: Ports and devices: None. Lungs: *Faintly FDG avid 0.9 x 0.7 Cm spiculated nodule in the left upper lobe SUVMax 2.4 (image 83), previously 0.8 x 0.7 Cm, (3:19, remeasured in the same plane). *Faintly FDG avid 0.5 cm nodule in the left upper lobe SUVMax 1.3 (image 98). Other subcentimeter pulmonary nodules no lungs are too small to characterize, for example an unchanged 0.3 cm pulmonary nodule in the left upper lobe (image 89). Upper lung predominant centrilobular and paraseptal emphysema. Pleura: No abnormal FDG uptake. Thoracic lymph Nodes: No abnormal FDG uptake. Mediastinum: FDG uptake in the esophagus is likely inflammatory. 4.2 x 4.2 cm ascending aortic aneurysm. Coronary artery calcifications. Atherosclerotic calcifications of the thoracic aorta. Breasts/Chest Wall: No abnormal FDG uptake. ABDOMEN/PELVIS: Liver/biliary system: No abnormal FDG uptake. Pancreas: No abnormal FDG uptake. Spleen: No abnormal FDG uptake. Adrenal Glands: No abnormal FDG uptake. Kidneys: No abnormal increased FDG uptake. Left renal cysts. Bowel: No abnormal FDG uptake. Mesentery, Omentum and Peritoneum: No abnormal FDG uptake. Atherosclerotic calcifications. Pelvic Organs: No abnormal FDG uptake. Multilobulated uterus likely representing uterine fibroids. Abdominopelvic lymph Nodes: No abnormal FDG uptake. Musculoskeletal: No abnormal FDG uptake. Multilevel degenerative changes in the spine. IMPRESSION: 1. A faintly FDG avid spiculated pulmonary nodule in the left upper lobe is compatible with a low-grade primary lung neoplasm. Correlate with tissue sampling. 2. A faintly FDG avid 0.5 cm pulmonary nodule in the left upper lobe is too small to characterize and nonspecific. The differential includes an inflammatory intrapulmonary lymph node, a synchronous primary lung neoplasm, or a site of intralobar pulmonary metastatic disease. 3. No evidence of FDG avid lyle or distant metastatic disease. 4. Evidence of periodontal disease in the left 1st maxillary molar tooth. Correlate with dental exam. 5. Trace layering fluid in the bilateral maxillary sinuses, which is compatible with sinusitis in the appropriate clinical context. 6. Other subcentimeter pulmonary nodules are too small to characterize. Correlate with prior CT chest studies if available or follow-up with repeat CT chest in 12 months. Dictated by Hakeem Barton MD @ 11/18/2024 5:08:23 PM (Electronically Signed)
== END 2024-11-17 14:14 | disposition home or self-care (01) ==
PROVIDERS: PCP Family Medicine; Visit Provider Family Medicine
DX: R91.1 Solitary pulmonary nodule (principal); K08.9 Disorder of teeth and supporting structures, unspecified; J32.0 Chronic maxillary sinusitis
CPT/HCPCS: 78815; A9552

== ENCOUNTER 2024-12-02 11:45 | Outpatient (CLI) | payer BC, SELFPAY | END 2024-12-02 11:46 | disposition home or self-care (01) | PROVIDERS: PCP Family Medicine; Visit Provider Family Medicine | DX: R53.83 Other fatigue (principal); E78.2 Mixed hyperlipidemia; I10 Essential (primary) hypertension | CPT/HCPCS: 82306; 82607; 83735; 84443 ==

== ENCOUNTER 2025-02-21 13:17 | Outpatient (CLI) | payer BC, SELFPAY | END 2025-02-21 13:18 | disposition home or self-care (01) | PROVIDERS: PCP Family Medicine; Visit Provider Family Medicine | DX: Z01.818 Encounter for other preprocedural examination (principal) | CPT/HCPCS: 80048; 85025 ==

== ENCOUNTER 2025-03-21 10:37 | Outpatient (CLI) | payer BC, SELFPAY ==
--- NOTE | 2025-03-21 10:45 | CRLHL7_ITS ---
For Patients: As a result of the Century Cures Act, medical imaging exams and procedure reports are released immediately into your electronic medical record. You may view this report before your referring provider. If you have questions, please contact your health care provider. CLINICAL HISTORY: RIGHT breast lump. COMPARISON: 03/25/2010 mammogram, CT-PET 11/17/2024. TECHNIQUE: Digital BILATERAL mammogram in 4 projections with computer-aided detection. Tomosynthesis was used in this interpretation. Real-time ultrasound imaging of RIGHT breast with imaging documentation. BREAST COMPOSITION: There are scattered areas of fibroglandular density. FINDINGS: 3D CC/MLO bilateral mammogram images submitted. No suspicious mass or architectural distortion. No suspicious calcifications or adenopathy. Targeted RIGHT breast ultrasound 5 o`clock 1 cm from the nipple performed. No fibrocystic change or mass. IMPRESSION: No suspicious findings. No evidence of malignancy. RECOMMENDATIONS: Routine screening mammography. A lay language report of this examination will be provided to the patient. BI-RADS Category 2. Benign Dictated by Mykel Bravo MD @ 03/21/2025 11:39:07 AM CALEB/chevy DW/Dictated by: Mykel Bravo MD @ 03/21/2025 11:39:00 AM (Electronically Signed)
--- NOTE | 2025-03-21 11:15 | CRLHL7_ITS ---
For Patients: As a result of the Cures Act, medical imaging exams and procedure reports are released immediately into your electronic medical record. You may view this report before your referring provider. If you have questions, please contact your health care provider. Please see BILATERAL diagnostic mammogram of same date for combined report. DM:chevy 03/21/2025 DW/Dictated by: Mykel Bravo MD @ 03/21/2025 11:39:00 AM (Electronically Signed)
== END 2025-03-21 10:38 | disposition home or self-care (01) ==
LOC: MAMMO 10:37
PROVIDERS: PCP Family Medicine; Visit Provider Family Medicine
DX: N63.10 Unspecified lump in the right breast, unspecified quadrant (principal)
CPT/HCPCS: 76642; 77066; G0279

== ENCOUNTER 2025-07-14 15:45 | Outpatient (CLI) | payer BC, SELFPAY ==
--- NOTE | 2025-07-14 16:00 | CRLHL7_ITS ---
For Patients: As a result of the Century Cures Act, medical imaging exams and procedure reports are released immediately into your electronic medical record. You may view this report before your referring provider. If you have questions, please contact your health care provider. INDICATION: Allergic bronchopulmonary aspergillosis TECHNIQUE: CT chest without contrast. COMPARISON: 10/27/[address] FINDINGS: Lungs and pleura: Stable 6 mm and 3 mm nodules in the left lung apex on images 16 in 21 of series 3. New subpleural nodules along the lateral right lower lobe measuring 6 mm on images 44 and 46. New cluster of small nodules in the right lower lobe centered around image 58. Some associated mucous plugging. Another cluster in the anterior right lower lobe images 69-72. Surgical staple lines in the right lung. Interlobular septal thickening in the upper and lower lungs. Heart and vasculature: Ascending aorta measures up to 4.4 cm. Coronary artery calcifications. Lymph nodes/mediastinum: No mediastinal, hilar, or axillary adenopathy. Chest wall: No masses. Upper abdomen: Normal. Bones: Unremarkable for age. IMPRESSION: 1. New nodules in the right lower lobe measuring up to 6 mm, likely infectious/inflammatory. 2. Couple of nodules in the left upper lobe are stable. Please note that all CT scans at this facility use dose modulation, iterative reconstruction, and/or weight-based dosing when appropriate to reduce radiation dose to as low as reasonably achievable. Dictated by Pasha Wesley MD @ 07/19/2025 11:59:44 AM (Electronically Signed)
== END 2025-07-14 15:46 | disposition home or self-care (01) ==
LOC: CT 15:45
PROVIDERS: PCP Family Medicine; Visit Provider Family Medicine
DX: B44.81 Allergic bronchopulmonary aspergillosis (principal); R91.1 Solitary pulmonary nodule; J44.9 Chronic obstructive pulmonary disease, unspecified
CPT/HCPCS: 71250